=== PATIENT | male | born 1950 | race Caucasian/White ===

== ENCOUNTER 2017-04-24 14:21 | Emergency (ER) | payer MEDICARE ==
[2017-04-24 14:57] VITALS: BMI 39.5
[2017-04-24 15:06] VITALS: RESP 18
[2017-04-24] MEDS ORDERED: Sodium Chloride 0.9% 1,000 ML IV ONE (15:07)
--- NOTE | 2017-04-24 15:27 | C.PDOC ---
History Of Present Illness Patient is a 66 y/o male presents to the emergency department for evaluation of lower abdominal pain radiating down to his testicles. Pt states he has difficulty passing urine. Otherwise, denies any n/v/d, or fever. History translated by RN. Time Seen by Provider: 04/24/17 14:47 Chief Complaint (Nursing): Male Genitourinary History Per: Patient History/Exam Limitations: no limitations Onset/Duration Of Symptoms: Days Current Symptoms Are (Timing): Still Present Quality Of Discomfort: "Pain" Associated Symptoms: Urinary Symptoms. denies: Fever, Chills, Nausea, Vomiting , Diarrhea, Loss Of Appetite, Back Pain, Chest Pain, Constipation Alleviating Factors: None Recent travel outside of the [place]: No Additional History Per: Patient Past Medical History Reviewed: Historical Data, Nursing Documentation, Vital Signs Vital Signs: Last Vital Signs Temp 98.5 F 04/24/17 18:18 Pulse 81 04/24/17 18:18 Resp 18 04/24/17 18:18 BP 134/90 04/24/17 18:18 Pulse Ox 95 04/24/17 18:44 - Medical History PMH: Atrial Fibrillation, Diabetes, HTN, Hypercholesterolemia, Hypothyroidism Denies: Chronic Kidney Disease Surgical History: Cholecystectomy Family History: States: Unknown Family Hx - Social History Hx Alcohol Use: No Hx Substance Use: No - Immunization History Hx Tetanus Toxoid Vaccination: No Hx Influenza Vaccination: No Hx Pneumococcal Vaccination: No Review Of Systems Except As Marked, All Systems Reviewed And Found Negative. Constitutional: Negative for: Fever, Chills Gastrointestinal: Positive for: Abdominal Pain. Negative for: Nausea, Vomiting , Diarrhea Genitourinary: Negative for: Dysuria, Frequency, Hematuria, Penile Discharge, Rash, Penile Pain Musculoskeletal: Negative for: Back Pain Skin: Negative for: Rash Physical Exam - Physical Exam Appears: Non-toxic, No Acute Distress Skin: Normal Color, Warm, Dry Head: Atraumatic, Normacephalic Eye(s): bilateral: Normal Inspection Neck: Supple Chest: Symmetrical Cardiovascular: Rhythm Regular, No Murmur Respiratory: Normal Breath Sounds, No Accessory Muscle Use, No Rales, No Rhonchi , No Wheezing Gastrointestinal/Abdominal: Soft, No Tenderness, No Guarding, No Rebound, Other (obese abdomen) Male Genital: No Testicular Tenderness, No Testicular Swelling, No Inguinal Tenderness, No Inguinal Swelling, No Scrotal Swelling Extremity: Bilateral: Atraumatic, Normal ROM Neurological/Psych: Oriented x3, Normal Speech, Normal Cognition ED Course And Treatment - Laboratory Results Result Diagrams: 04/24/17 16:07 04/24/17 16:07 Lab Interpretation: No Acute Changes ECG: Interpreted By Me ECG Rhythm: Atrial Fibrillation ECG Interpretation: No Acute Changes Rate From EC O2 Sat by Pulse Oximetry: 95 Pulse Ox Interpretation: Normal - CT Scan/US No standard instances Other Rad Studies (CT/US): Read By Radiologist, Radiology Report Reviewed CT/US Interpretation: FINDINGS: There is limited evaluation of the solid organs without the administration of IV contrast. LOWER THORAX: No focal consolidation. No pleural effusion. No pneumothorax. Partially imaged cardiomegaly. Small hiatal hernia. LIVER: Unremarkable unenhanced appearance. GALLBLADDER AND BILE DUCTS: Cholecystectomy. PANCREAS: Fatty atrophy of the pancreas. SPLEEN: Unremarkable unenhanced appearance. ADRENALS : Unremarkable. KIDNEYS AND URETERS: No hydronephrosis or obstructing renal calculus. 2.2 cm exophytic right upper pole renal lesion measures approximately 16 HU, indeterminate. Right upper pole 2.4 cm right upper pole renal lesion measures approximately 9 HU, compatible with a cyst. BLADDER: Decompressed urinary bladder precludes adequate evaluation. REPRODUCTIVE: The prostate gland measures approximately 4.5 x 4.5 cm. APPENDIX: The appendix appears within normal limits of caliber. No secondary signs of acute appendicitis. BOWEL: The stomach is nondistended. Lack of oral contrast limits evaluation for bowel pathology. The bowel loops appear within normal limits of caliber without evidence of intestinal obstruction. PERITONEUM: No significant free fluid. No definite free air. LYMPH NODES: No bulky lymphadenopathy identified. VASCULATURE: Atherosclerotic calcifications of the aorta. No aortic aneurysm. BONES: Osseous demineralization. Degenerative changes. Vacuum disc phenomenon at T12-L1, L1-L2, and L2-L3. OTHER FINDINGS: Fat containing umbilical hernia. IMPRESSION: 2.2 cm exophytic right upper pole renal lesion measures approximately 16 HU, indeterminate. Right upper pole 2.4 cm right upper pole renal lesion measures approximately 9 HU, compatible with a cyst. Cholecystectomy. Enlarged prostate gland. Recommend correlation with PSA. Fat containing umbilical hernia. Additional findings as above. Progress Note: Urinalysis, blood work, EKG, Abd & pelvis CT ordered and reviewed. Patient was given IV fluids. Spoke with Dr. Vick who agrees with plan and discharge. Reassessment Condition: Unchanged - Physician Consult Information Physician Contacted: Brodie Vick Outcome Of Conversation: refer to urologist Dr Winchester Disposition - Disposition Referrals: Mynor Cote MD [Staff Provider] - Brodie Vick MD [IM] - Disposition: HOME/ ROUTINE Disposition Time: 18:00 Condition: GOOD Additional Instructions: Return to ED if any increase symptoms Instructions: Benign Prostatic Hypertrophy (ED) Print Language: GEORGIAN - Clinical Impression Clinical Impression: Abdominal pain, BPH (benign prostatic hyperplasia) - PA / [employer] / Resident Statement MD/DO has reviewed & agrees with the documentation as recorded. - Scribe Statement The provider has reviewed the documentation as recorded by the Reinaldoiblamberto Anderson All medical record entries made by the Reinaldoiblamberto were at my direction and personally dictated by me. I have reviewed the chart and agree that the record accurately reflects my personal performance of the history, physical exam, medical decision making, and the department course for this patient. I have also personally directed, reviewed, and agree with the discharge instructions and disposition.
[2017-04-24 16:14] LABS: BASO # 0.1 K/uL (0.0-0.2); BASO % 1.1 % (0.0-2.0); EOS # 0.1 K/uL (0.0-0.7); EOS % 1.2 % (0.0-4.0); HEMOGLOBIN 14.6 g/dL (12.0-18.0); LYMPH # 1.1 K/uL (1.0-4.3); LYMPH % 20.2 % (20.0-40.0); MEAN CORPUSCULAR HEMOGLOBIN 30.3 pg (27.0-31.0); MEAN CORPUSCULAR HGB CONC 33.7 g/dL (33.0-37.0); MONO # 0.6 K/uL (0.0-0.8); MONO % 10.1 % (0.0-10.0); NEUT # 3.8 K/uL (1.8-7.0); NEUT % 67.4 % (50.0-75.0); RBC 4.8 Mil/uL (4.40-5.90); RED CELL DISTRIBUTION WIDTH 12.3 % (11.5-14.5); SQUAMOUS EPITHIAL 1 /hpf (0-5); URINE BACTERIA RARE (<OCC); URINE BILIRUBIN NEGATIVE (NEGATIVE); URINE BLOOD NEGATIVE (NEGATIVE); URINE CLARITY Clear (Clear); URINE COLOR Yellow (YELLOW); URINE GLUCOSE (UA) 1+ mg/dL (Normal); URINE LEUKOCYTE ESTERASE NEG Leu/uL (Negative); URINE NITRATE NEGATIVE (NEGATIVE); URINE PROTEIN 3+ mg/dL (NEGATIVE); URINE UROBILINOGEN NORMAL mg/dL (0.2-1.0); WHITE BLOOD COUNT 5.6 K/uL (4.8-10.8)
[2017-04-24 16:19] LABS: INR 2.5; PROTHROMBIN TIME 28.6 SECONDS (9.7-12.2)
[2017-04-24 16:23] LABS: CALCIUM 8.9 mg/dl (8.6-10.4)
--- NOTE | 2017-04-24 17:15 | CT ---
PROCEDURE: CT Abdomen and Pelvis without Oral or IV contrast. HISTORY: Pain COMPARISON: None available. TECHNIQUE: Contiguous axial images of the abdomen and pelvis. No oral or IV contrast administered. Coronal and Sagittal reformats generated. Radiation dose: Total exam DLP = 1170.58 mGy-cm. This CT exam was performed using one or more of the following dose reduction techniques: Automated exposure control, adjustment of the mA and/or kV according to patient size, and/or use of iterative reconstruction technique. FINDINGS: There is limited evaluation of the solid organs without the administration of IV contrast. LOWER THORAX: No focal consolidation. No pleural effusion. No pneumothorax. Partially imaged cardiomegaly. Small hiatal hernia. LIVER: Unremarkable unenhanced appearance. GALLBLADDER AND BILE DUCTS: Cholecystectomy. PANCREAS: Fatty atrophy of the pancreas. SPLEEN: Unremarkable unenhanced appearance. ADRENALS: Unremarkable. KIDNEYS AND URETERS: No hydronephrosis or obstructing renal calculus. 2.2 cm exophytic right upper pole renal lesion measures approximately 16 HU, indeterminate. Right upper pole 2.4 cm right upper pole renal lesion measures approximately 9 HU, compatible with a cyst. BLADDER: Decompressed urinary bladder precludes adequate evaluation. REPRODUCTIVE: The prostate gland measures approximately 4.5 x 4.5 cm. APPENDIX: The appendix appears within normal limits of caliber. No secondary signs of acute appendicitis. BOWEL: The stomach is nondistended. Lack of oral contrast limits evaluation for bowel pathology. The bowel loops appear within normal limits of caliber without evidence of intestinal obstruction. PERITONEUM: No significant free fluid. No definite free air. LYMPH NODES: No bulky lymphadenopathy identified. VASCULATURE: Atherosclerotic calcifications of the aorta. No aortic aneurysm. BONES: Osseous demineralization. Degenerative changes. Vacuum disc phenomenon at T12-L1, L1-L2, and L2-L3. OTHER FINDINGS: Fat containing umbilical hernia. IMPRESSION: 2.2 cm exophytic right upper pole renal lesion measures approximately 16 HU, indeterminate. Right upper pole 2.4 cm right upper pole renal lesion measures approximately 9 HU, compatible with a cyst. Cholecystectomy. Enlarged prostate gland. Recommend correlation with PSA. Fat containing umbilical hernia. Additional findings as above.
[2017-04-24 18:19] VITALS: BP 134/90; PULSE 81; TEMP 98.5
[2017-04-24 18:45] VITALS: O2SAT 95
--- NOTE | 2017-04-25 14:40 | CARD ---
APPROVED REPORT EKG Measurement Heart [id number] <Conclusion> Atrial fibrillation with premature ventricular or aberrantly conducted complexes Abnormal ECG
== END 2017-04-24 18:19 | disposition home or self-care (01) ==
LOC: C.ER 14:21
DX: N40.1 Benign prostatic hyperplasia with lower urinary tract symptoms (principal)
CPT/HCPCS: 74176; 80053; 81001; 83690; 85025; 85610; 93005; 96360; 99285; J7040

== ENCOUNTER 2018-05-12 13:06 | Inpatient (IN) | payer MEDICARE ==
[2018-05-12 13:06] VITALS: BMI 39.5
[2018-05-12 14:10] LABS: BASO # 0.1 K/uL (0.0-0.2); BASO % 0.6 % (0.0-2.0); EOS % 0.5 % (0.0-4.0); HEMOGLOBIN 14.2 g/dL (12.0-18.0); LYMPH # 0.9 K/uL (1.0-4.3); LYMPH % 10.9 % (20.0-40.0); MEAN CELL VOLUME 88.1 fL (80.0-94.0); MEAN CORPUSCULAR HEMOGLOBIN 30.7 pg (27.0-31.0); MEAN CORPUSCULAR HGB CONC 34.8 g/dL (33.0-37.0); MEAN PLATELET VOLUME 10.7 fL (7.2-11.7); MONO # 0.9 K/uL (0.0-0.8); NEUT # 6.6 K/uL (1.8-7.0); RBC 4.63 Mil/uL (4.40-5.90); RED CELL DISTRIBUTION WIDTH 12.5 % (11.5-14.5); WHITE BLOOD COUNT 8.6 K/uL (4.8-10.8)
[2018-05-12 14:19] LABS: INR 2.5
[2018-05-12 14:31] VITALS: RESP 20
[2018-05-12 14:34] LABS: TROPONIN I 0.028 ng/mL (0.00-0.120)
[2018-05-12 14:35] LABS: ALBUMIN 4.4 g/dL (3.5-5.0); CALCIUM 9.4 mg/dl (8.6-10.4); URIC ACID 15.9 mg/dL (3.5-8.5)
[2018-05-12] MEDS ORDERED: Sodium Chloride 0.9% 1,000 ML IV ONE (14:55)
[2018-05-12] MEDS ORDERED: Potassium Chloride 10 mEq ER Tab PO STA (15:00)
--- NOTE | 2018-05-12 15:01 | C.PDOC ---
History Of Present Illness 67 y/o male presents to the ED complaining of pain in the dorsum of right foot for the last 3 days. He denies having had similar symptoms in the past. Patient has tried taking anything for pain relief at home. Otherwise he denies any numbness, tingling, or weakness. Time Seen by Provider: 05/12/18 13:24 Chief Complaint (Nursing): Upper Extremity Problem/Injury History Per: Patient History/Exam Limitations: no limitations Onset/Duration Of Symptoms: Days Current Symptoms Are (Timing): Still Present Past Medical History Reviewed: Historical Data, Nursing Documentation, Vital Signs Vital Signs: Last Vital Signs Temp 99.7 F H 05/12/18 13:17 Pulse 87 05/12/18 15:33 Resp 20 05/12/18 15:33 BP 111/60 05/12/18 15:33 Pulse Ox 100 05/12/18 15:33 - Medical History PMH: Atrial Fibrillation, Diabetes, HTN, Hypercholesterolemia, Hypothyroidism Denies: Chronic Kidney Disease Surgical History: Cholecystectomy Family History: States: Unknown Family Hx - Social History Hx Alcohol Use: No Hx Substance Use: No - Immunization History Hx Tetanus Toxoid Vaccination: No Hx Influenza Vaccination: No Hx Pneumococcal Vaccination: No Review Of Systems Except As Marked, All Systems Reviewed And Found Negative. Constitutional: Negative for: Fever Musculoskeletal: Positive for: Foot Pain Skin: Negative for: Rash, Lesions Neurological: Negative for: Weakness, Numbness, Incoordination Physical Exam - Physical Exam Appears: Non-toxic, No Acute Distress, Other (Obese male) Skin: Normal Color, Warm, No Rash Head: Atraumatic, Normacephalic Eye(s): bilateral: Normal Inspection Oral Mucosa: Moist Neck: Normal ROM, Supple Chest: Symmetrical Cardiovascular: Rhythm Regular, No Murmur Respiratory: Normal Breath Sounds, No Rales, No Rhonchi, No Wheezing Extremity: Normal ROM, Tenderness (to the dorsum of right foot), No Swelling, Other (No surrounding erythema or leg edema) Pulses: Left Dorsalis Pedis: Normal, Right Dorsalis Pedis: Normal Neurological/Psych: Oriented x3, Normal Speech, Normal Cranial Nerves ED Course And Treatment - Laboratory Results Result Diagrams: 05/12/18 14:00 05/12/18 14:00 Lab Interpretation: Abnormal (acute renal insuff c/w 04/22 BUN/Creat 106/3.4 H, + hypokalemia) ECG: Interpreted By Me ECG Rhythm: Atrial Fibrillation ECG Interpretation: Abnormal Rate From EC O2 Sat by Pulse Oximetry: 95 (RA) Pulse Ox Interpretation: Normal - Radiology CXR: Interpreted by Me CXR Interpretation: Yes: Heart Size - Other Rad R foot X-Ray: Interpreted by Me (no fx/disloc ) Reevaluation Time: 14:59 Reassessment Condition: Improved - Physician Consult Information Outcome Of Conversation: 1500: d/w Dr. Vick- alfa to admit Medical Decision Making Medical Decision Making: R dorsal foot pain ? gouty Colchicine started Toradol for pain Consider indomethacin, but with acute renal insuff may consider steroids and not NSAIDS for pain . 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 I have reviewed the chart and agree that the record accurately reflects my personal performance of the history, physical exam, medical decision making, and the department course for this patient. I have also personally directed, reviewed, and agree with the discharge instructions and disposition.
[2018-05-12] MEDS ORDERED: Potassium Chloride 10 mEq ER Tab PO ONE (15:09)
--- NOTE | 2018-05-12 15:31 | RAD ---
Chest x-ray single frontal view History: Chest pain. Comparison: 04/25/2016 Findings: Biapical pleural thickening with upper lobe granulomatous changes. Mild venous congestion. Right hilar prominence. Patchy increased markings at the left lung base with small left pleural effusion. Cardiomegaly. Enlarged ectatic aorta. Degenerative changes in the spine and shoulders. Impression: Biapical pleural thickening with upper lobe granulomatous changes. Mild venous congestion. Right hilar prominence. Patchy increased markings at the left lung base with small left pleural effusion. Cardiomegaly. Enlarged ectatic aorta.
[2018-05-12] MEDS: Sodium Chloride 0.9% 1,000 ML IV SCH (16:12)
--- NOTE | 2018-05-12 16:32 | CP.PCM.HP ---
History of Present Illness - History of Present Illness History of Present Illness: Patient is admitted for progressive renal failure and decreasing urine output and right ankle pain. Patient has a history of hypertension and atrial fibrillation history of diastolic heart failure type 2 diabetes recently patients creatinine had gone up to 1.5-1.6. [place] and came back after 1 month and a repeat blood test showed creatinine had gone up to 3.4. Patient was also complaining of urinary symptoms and outpatient urine culture were positive for E. coli more than 100,000. Patient was given Augmentin which was sensitive to E. coli. Patient took some antibiotics and started complaining of more decreasing urine output and swelling and pain on the right ankle patient stated that the pain in the right ankle has been present for the last few months. In the emergency room patients creatinine was 3.5 and BUN was 101 with a potassium of 2.9. Patient is admitted now for further evaluation. Present on Admission - Present on Admission Any Indicators Present on Admission: No Past Patient History - Past Medical History & Family History Past Medical History?: Yes - Past Social History Smoking Status: Former Smoker - CARDIAC Hx Atrial Fibrillation: Yes Hx Hypercholesterolemia: Yes Hx Hypertension: Yes - PULMONARY Hx Respiratory Disorders: No - NEUROLOGICAL Hx Neurological Disorder: Yes Hx Dizziness: Yes Hx Syncope: Yes - HEENT Hx HEENT Problems: No - RENAL Hx Chronic Kidney Disease: No - ENDOCRINE/METABOLIC Hx Hypothyroidism: Yes - HEMATOLOGICAL/ONCOLOGICAL Hx Blood Disorders: No Hx Blood Transfusions: No - INTEGUMENTARY Hx Dermatological Problems: No - MUSCULOSKELETAL/RHEUMATOLOGICAL Hx Musculoskeletal Disorders: Yes Hx Falls: Yes - GASTROINTESTINAL Hx Gastrointestinal Disorders: No - GENITOURINARY/GYNECOLOGICAL Hx Genitourinary Disorders: No - PSYCHIATRIC Hx Substance Use: No - SURGICAL HISTORY Hx Cholecystectomy: Yes - ANESTHESIA Hx Anesthesia: Yes Hx Anesthesia Reactions: No Meds Allergies/Adverse Reactions: Allergies Allergy/AdvReac Type Severity Reaction Status Date / Time No Known Allergies Allergy Verified 05/12/18 13:09 Results - Vital Signs Recent Vital Signs: Last Vital Signs Temp 99.7 F H 05/12/18 13:17 Pulse 87 05/12/18 15:33 Resp 20 05/12/18 15:33 BP 111/60 05/12/18 15:33 Pulse Ox 100 05/12/18 15:33 - Labs Result Diagrams: 05/15/18 07:13 05/15/18 07:13 Labs: Laboratory Results - last 24 hr 05/12/18 05/12/18 05/12/18 14:00 14:00 14:00 WBC 8.6 D RBC 4.63 Hgb 14.2 Hct 40.8 MCV 88.1 MCH 30.7 MCHC 34.8 RDW 12.5 Plt Count 184 MPV 10.7 Neut % (Auto) 77.0 H Lymph % (Auto) 10.9 L [place] % (Auto) 11.0 H Eos % (Auto) 0.5 Baso % (Auto) 0.6 Neut # (Auto) 6.6 Lymph # (Auto) 0.9 L [place] # (Auto) 0.9 H Eos # (Auto) 0.0 Baso # (Auto) 0.1 PT 27.0 H INR 2.5 APTT 41 H Sodium 139 Potassium 2.9 L Chloride 91 L Carbon Dioxide 32 H Anion Gap 19 BUN 106 H* D Creatinine 3.4 H Est GFR ( Amer) 22 Est GFR (Non-Af Amer) 18 Random Glucose 149 H Uric Acid 15.9 H Calcium 9.4 Total Bilirubin 1.1 AST 32 ALT 31 Alkaline Phosphatase 73 Troponin I 0.0280 NT-Pro-B Natriuret Pep 1250 H Total Protein 8.9 H Albumin 4.4 Globulin 4.5 H Albumin/Globulin Ratio 1.0
--- NOTE | 2018-05-12 16:54 | RAD ---
Date of service: 05/12/2018 PROCEDURE: Right Foot Radiographs. HISTORY: dorsum R foot, no trauma, ? gout COMPARISON: None. FINDINGS: BONES: No evidence of acute displaced fracture nor dislocation. Small triangular-shaped bony density adjacent to the medial aspect base distal phalanx great toe could represent old incompletely fused fracture deformity. . There is dorsal and plantar surface calcaneal enthesophyte formation. JOINTS: Mild multi articular degenerative osteoarthritis SOFT TISSUES: Calcification of the plantar fascia is present OTHER FINDINGS: None. IMPRESSION: No evidence of acute displaced fracture nor dislocation. Small triangular-shaped bony density adjacent to the medial aspect base distal phalanx great toe could represent old incompletely fused fracture deformity. . There is dorsal and plantar surface calcaneal enthesophyte formation. Mild multi articular degenerative osteoarthritis. . Calcification of the plantar fascia
[2018-05-12] MEDS: (Novolin R) Insulin Human Regular 100 units/ml vial SC SCH (21:11)
[2018-05-12] MEDS: Oxycodone/Acetaminophen 5/325 mg Tab PO PRN (22:07)
[2018-05-12 22:20] LABS: SQUAMOUS EPITHIAL < 1 /hpf (0-5); URINE BACTERIA RARE (<OCC); URINE BILIRUBIN NEGATIVE (NEGATIVE); URINE BLOOD NEGATIVE (NEGATIVE); URINE CLARITY Clear (Clear); URINE COLOR Yellow (YELLOW); URINE GLUCOSE (UA) NORMAL (Normal); URINE LEUKOCYTE ESTERASE NEG Leu/uL (Negative); URINE PROTEIN 2+ mg/dL (NEGATIVE); URINE UROBILINOGEN NORMAL mg/dL (0.2-1.0)
[2018-05-13] MEDS: Sodium Chloride 0.9% 1,000 ML IV SCH ×4 (02:20→21:08)
[2018-05-13] MEDS: Levothyroxine 200 MCG TAB PO SCH (07:00)
[2018-05-13 07:22] LABS: BASO # 0.1 K/uL (0.0-0.2); BASO % 0.9 % (0.0-2.0); EOS # 0.2 K/uL (0.0-0.7); EOS % 2.9 % (0.0-4.0); HEMOGLOBIN 13.8 g/dL (12.0-18.0); LYMPH # 1.5 K/uL (1.0-4.3); LYMPH % 22.9 % (20.0-40.0); MEAN CORPUSCULAR HEMOGLOBIN 31.2 pg (27.0-31.0); MEAN CORPUSCULAR HGB CONC 34.6 g/dL (33.0-37.0); MEAN PLATELET VOLUME 10.8 fL (7.2-11.7); MONO # 0.7 K/uL (0.0-0.8); MONO % 10.3 % (0.0-10.0); NEUT # 4.2 K/uL (1.8-7.0); RBC 4.42 Mil/uL (4.40-5.90); RED CELL DISTRIBUTION WIDTH 12.6 % (11.5-14.5); WHITE BLOOD COUNT 6.6 K/uL (4.8-10.8)
[2018-05-13] MEDS: (Novolin R) Insulin Human Regular 100 units/ml vial SC SCH ×4 (07:43→21:07)
[2018-05-13 08:16] LABS: ALB/GLOB RATIO 1.1 (1.0-2.1); ALBUMIN 4.2 g/dL (3.5-5.0); CALCIUM 8.8 mg/dl (8.6-10.4)
--- NOTE | 2018-05-13 13:59 | US ---
Date of service: 05/13/2018 PROCEDURE: Ultrasound of the Kidneys HISTORY: [facility] COMPARISON: None available. TECHNIQUE: Sonogram of the kidneys. FINDINGS: RIGHT KIDNEY: Measures: 12.9 x 5.8 x 6.1 cm. The renal parenchyma is echogenic with poor corticomedullary differentiation indicative of intrinsic medical renal disease. No solid mass identified, urolithiasis or hydronephrosis. A simple exophytic cyst is is seen related to the upper midpole measuring 2.8 x 2.4 by 2.7 cm with an intrarenal cyst at the upper midpole measuring 2.7 x 2.4 x 2.9 cm. Both appear simple. LEFT KIDNEY: Measures: 10.5 x 5.5 x 5.2 cm. Echogenic renal parenchyma is appreciate with poor corticomedullary differentiation compatible with intrinsic medical renal disease. No obstructive uropathy, cyst or solid mass or perinephric fluid collection. OTHER FINDINGS: Urinary bladder is limited volume at 72.5 cc which is a postvoid residual from an indeterminate volume. The patient voided immediately prior to the examination unfortunately. IMPRESSION: Echogenic parenchyma is appreciate with very poor corticomedullary differentiation suggesting intrinsic medical disease. No obstructive uropathy or solid renal parenchymal mass. Two simple cysts identified in the upper midpole right kidney as discussed above.
[2018-05-13] MEDS ORDERED: Potassium Chloride 20 mEq ER Tab PO ONE (14:15)
--- NOTE | 2018-05-13 14:26 | CP.PCM.HP ---
History of Present Illness - History of Present Illness History of Present Illness: COMPREHENSIVE HISTORY & PHYSICAL EXAM HPI Patient is admitted for progressive renal failure and decreasing urine output and right ankle pain. Patient has a history of hypertension and atrial fibrillation history of diastolic heart failure type 2 diabetes recently patients creatinine had gone up to 1.5-1.6. Recently patient went [place] country and came back after 1 month and a repeat blood test showed creatinine had gone up to 3.4. Patient was also complaining of urinary symptoms and outpatient urine culture were positive for E. coli more than 100,000. Patient was given Augmentin which was sensitive to E. coli. Patient took some antibiotics and started complaining of more decreasing urine output and swelling and pain on the right ankle patient stated that the pain in the right ankle has been present for the last few months. In the emergency room patients creatinine was 3.5 and BUN was 101 with a potassium of 2.9. Patient is admitted now for further evaluation. PAST HIST. PERSONAL HIST: Smoking. N Alcohol. N Allergy N Travel_- . FAMILY HIST : ROS : Constitutional: Negative for weight change, chills, night sweats, fatigue and usage of assist device. Eyes: Negative for redness, swelling, itching, discharge, vision changes, blurry vision, double vision, glaucoma, cataracts, Ears: Negative for hearing loss, ringing, , tinnitus, vertigo Nose: Negative for rhinorrhea, stuffiness, sniffing, itching, postnasal drip, discoloration, nasal congestion and epistaxis. Throat: Negative for throat clearing, sore throat, hoarseness, difficulty swallowing and difficulty speaking. Respiratory: Negative for cough, , sputum production, chest tightness, wheezing, pleuritic chest pain ,daytime somnolence, chronic cough, hemoptysis, snoring at night, Cardiovascular: Negative for chest pain, palpitations, orthopnea, PND, Edema of legs, leg cramps, angina, claudication, , irregular heartbeat, Neurology: Negative for irritability, muscle weakness, numbness and tingling, seizures, tremors, migraines, slurred speech, syncope, memory loss, mood changes , recurrent headaches Gastrointestinal: Negative for difficulty swallowing, diarrhea, constipation, black stools, rectal bleeding, nausea, flatulence, reflux, poor appetite, changes in bowel habits, abdominal pain Genitourinary patient has a frequent urination with decreasing urine output no definite dysuria currently or hematuria. Psychiatric: Negative for depression, anxiety/panic, suicidal tendencies, Musculoskeletal: Negative for swollen joints, back pain, , neck pain, morning stiffness of joints, . Skin: Negative for rash, ulcers, itching, dry skin and pigmented lesions. P/E: Constitutional: Appears stated age and in no apparent distress. Head: Normocephalic. Ears: External ear canals patent without inflammation. Tympanic membranes intact with normal light reflex and landmark. Eyes: Pupils are central, bilaterally equal, symmetrical and reacts to light with normal movements and no icterus or pallor. Nose: External nares are patent. Mucosa is pink Mouth-Throat: Good general appearance and condition. No post-pharyngeal/oropharyngeal erythema and tonsillar hypertrophy. Good dental hygiene. Neck-Lymphatic: Neck is supple with normal ROM, no thyromegaly, lymph nodes or masses. JVD is normal with no carotid bruit. Lungs: Clear to percussion and auscultation with bilateral normal air entry. Cardiovascular: S1 and S2 are normal with no murmurs, gallops and rub. GI Exam: No hepatomegaly. Abdomen is soft and non-tender. No Organomegaly , masses or hernias are evident and bowel sounds are normal and active. Neurology: Higher function and all cranial nerves intact, with no gross motor or sensory deficit. Superficial and deep reflexes are normal with downwards planters. No cerebellar deficit with normal gait. Musculoskeletal: No tender spots with normal curvature of the spine with no swelling or restricted ROM of the small and large joints. Extremities: Homans sign absent. Intact pulses with no pitting edema, calf tenderness or skin color changes. There is tenderness in the right ankle range of motion is restricted because of pain Skin: No rash, eruptions or abnormal skin pigmentation LAB/RADIOLOGY: ASSESMENT : Acute on chronic renal failure with hypokalemia. Hypertension atrial fibrillation. Type 2 diabetes PLAN: See orders Present on Admission - Present on Admission Any Indicators Present on Admission: No Past Patient History - Past Medical History & Family History Past Medical History?: Yes - Past Social History Smoking Status: Former Smoker - CARDIAC Hx Atrial Fibrillation: Yes Hx Hypercholesterolemia: Yes Hx Hypertension: Yes - PULMONARY Hx Respiratory Disorders: No - NEUROLOGICAL Hx Neurological Disorder: Yes Hx Dizziness: Yes Hx Syncope: Yes - HEENT Hx HEENT Problems: No - RENAL Hx Chronic Kidney Disease: No - ENDOCRINE/METABOLIC Hx Hypothyroidism: Yes - HEMATOLOGICAL/ONCOLOGICAL Hx Blood Disorders: No Hx Blood Transfusions: No - INTEGUMENTARY Hx Dermatological Problems: No - MUSCULOSKELETAL/RHEUMATOLOGICAL Hx Falls: Yes - GASTROINTESTINAL Hx Gastrointestinal Disorders: No - GENITOURINARY/GYNECOLOGICAL Hx Genitourinary Disorders: No - PSYCHIATRIC Hx Substance Use: No - SURGICAL HISTORY Hx Cholecystectomy: Yes Hx Herniorrhaphy: Yes Other/Comment: brain tumor removal in [place] - ANESTHESIA Hx Anesthesia: Yes Hx Anesthesia Reactions: No Meds Allergies/Adverse Reactions: Allergies Allergy/AdvReac Type Severity Reaction Status Date / Time No Known Allergies Allergy Verified 05/12/18 13:09 Results - Vital Signs Recent Vital Signs: Last Vital Signs Temp 98.1 F 05/13/18 07:00 Pulse 91 H 05/13/18 07:15 Resp 20 05/13/18 07:00 BP 113/69 05/13/18 07:00 Pulse Ox 99 05/13/18 07:00 - Labs Result Diagrams: 05/13/18 07:02 05/13/18 07:02 Labs: Laboratory Results - last 24 hr 05/12/18 05/12/18 05/12/18 13:11 14:00 14:00 WBC RBC Hgb Hct MCV MCH MCHC RDW Plt Count MPV Neut % (Auto) Lymph % (Auto) [place] % (Auto) Eos % (Auto) Baso % (Auto) Neut # (Auto) Lymph # (Auto) [place] # (Auto) Eos # (Auto) Baso # (Auto) PT 27.0 H INR 2.5 APTT 41 H Sodium 139 Potassium 2.9 L Chloride 91 L Carbon Dioxide 32 H Anion Gap 19 BUN 106 H* D Creatinine 3.4 H Est GFR ( Amer) 22 Est GFR (Non-Af Amer) 18 POC Glucose (mg/dL) 155 H Random Glucose 149 H Uric Acid 15.9 H Calcium 9.4 Total Bilirubin 1.1 AST 32 ALT 31 Alkaline Phosphatase 73 Troponin I 0.0280 NT-Pro-B Natriuret Pep 1250 H Total Protein 8.9 H Albumin 4.4 Globulin 4.5 H Albumin/Globulin Ratio 1.0 Urine Color Urine Clarity Urine pH Ur Specific [place] Urine Protein Urine Glucose (UA) Urine Ketones Urine Blood Urine Nitrate Urine Bilirubin Urine Urobilinogen Ur Leukocyte Esterase Urine WBC (Auto) Urine RBC (Auto) Ur Squamous Epith Cells Urine Bacteria 05/12/18 05/12/18 05/12/18 16:45 20:39 22:09 WBC RBC Hgb Hct MCV MCH MCHC RDW Plt Count MPV Neut % (Auto) Lymph % (Auto) [place] % (Auto) Eos % (Auto) Baso % (Auto) Neut # (Auto) Lymph # (Auto) [place] # (Auto) Eos # (Auto) Baso # (Auto) PT INR APTT Sodium Potassium Chloride Carbon Dioxide Anion Gap BUN Creatinine Est GFR ( Amer) Est GFR (Non-Af Amer) POC Glucose (mg/dL) 144 H 144 H Random Glucose Uric Acid Calcium Total Bilirubin AST ALT Alkaline Phosphatase Troponin I NT-Pro-B Natriuret Pep Total Protein Albumin Globulin Albumin/Globulin Ratio Urine Color Yellow Urine Clarity Clear Urine pH 5.0 Ur Specific [place] 1.014 Urine Protein 2+ H Urine Glucose (UA) Normal Urine Ketones Negative Urine Blood Negative Urine Nitrate Negative Urine Bilirubin Negative Urine Urobilinogen Normal Ur Leukocyte Esterase Neg Urine WBC (Auto) 2 Urine RBC (Auto) < 1 Ur Squamous Epith Cells < 1 Urine Bacteria Rare 05/13/18 05/13/18 05/13/18 06:42 07:02 07:02 WBC 6.6 RBC 4.42 Hgb 13.8 Hct 39.8 MCV 90.0 MCH 31.2 H MCHC 34.6 RDW 12.6 Plt Count 172 MPV 10.8 Neut % (Auto) 63.0 Lymph % (Auto) 22.9 [place] % (Auto) 10.3 H Eos % (Auto) 2.9 Baso % (Auto) 0.9 Neut # (Auto) 4.2 Lymph # (Auto) 1.5 [place] # (Auto) 0.7 Eos # (Auto) 0.2 Baso # (Auto) 0.1 PT INR APTT Sodium 142 Potassium 3.4 L Chloride 95 L Carbon Dioxide 31 H Anion Gap 19 BUN 101 H* Creatinine 3.1 H Est GFR ( Amer) 24 Est GFR (Non-Af Amer) 20 POC Glucose (mg/dL) 129 H Random Glucose 134 H Uric Acid Calcium 8.8 Total Bilirubin 0.8 AST 26 ALT 27 Alkaline Phosphatase 66 Troponin I NT-Pro-B Natriuret Pep Total Protein 7.9 Albumin 4.2 Globulin 3.7 Albumin/Globulin Ratio 1.1 Urine Color Urine Clarity Urine pH Ur Specific [place] Urine Protein Urine Glucose (UA) Urine Ketones Urine Blood Urine Nitrate Urine Bilirubin Urine Urobilinogen Ur Leukocyte Esterase Urine WBC (Auto) Urine RBC (Auto) Ur Squamous Epith Cells Urine Bacteria 05/13/18 11:18 WBC RBC Hgb Hct MCV MCH MCHC RDW Plt Count MPV Neut % (Auto) Lymph % (Auto) [place] % (Auto) Eos % (Auto) Baso % (Auto) Neut # (Auto) Lymph # (Auto) [place] # (Auto) Eos # (Auto) Baso # (Auto) PT INR APTT Sodium Potassium Chloride Carbon Dioxide Anion Gap BUN Creatinine Est GFR ( Amer) Est GFR (Non-Af Amer) POC Glucose (mg/dL) 221 H Random Glucose Uric Acid Calcium Total Bilirubin AST ALT Alkaline Phosphatase Troponin I NT-Pro-B Natriuret Pep Total Protein Albumin Globulin Albumin/Globulin Ratio Urine Color Urine Clarity Urine pH Ur Specific [place] Urine Protein Urine Glucose (UA) Urine Ketones Urine Blood Urine Nitrate Urine Bilirubin Urine Urobilinogen Ur Leukocyte Esterase Urine WBC (Auto) Urine RBC (Auto) Ur Squamous Epith Cells Urine Bacteria
--- NOTE | 2018-05-13 14:29 | CP.PCM.PN ---
Subjective - Date & Time of Evaluation Date of Evaluation: 05/13/18 Time of Evaluation: 14:27 - Subjective Subjective: CHIEF COMPLAINTS TODAY : Patient is complaining of lower abdominal pain and oliguria. The pain in the right ankle is slightly less ROS. HEENT : N. Resp : No cough, wheezing ,pleuritic CP ,or hemoptysis Cardio : No anginal CP, PND, orthopnea, palpitation GI : No abd.pain, n/v ,diarrhea or GI bleeding . [employer] : No headache, vertigo, focal deficit. Musculoskel : No joint swelling , right ankle pain Derm : No rash Psych : Normal affect. Ext : No swelling ,calf pain PE. Pt. is alert awake in no distress. V.S As noted in the chart Head ,ear nose,throat and eyes : Normal. Neck : Supple with normal carotids. Lungs: Clear air entry. Heart : S1 & S2 normal with S4. No murmur. Abd : Soft non tender with normal bowel sounds. Neuro : Moves all ext. with no localized deficit. Ext : No edema with intact pulses.Non tender calves . Tenderness in the right ankle Derm : No rashes or decubitus ulcer. LABS/RADIOLOGY: BUN is 101 creatinine is 3.0 and potassium is 3.4 ASSESSMENT/PLAN : Awaiting nephrology evaluation continue present medication Objective - Vital Signs/Intake and Output Vital Signs (last 24 hours): Temp Pulse Resp BP Pulse Ox 98.1 F 91 H 20 113/69 99 05/13/18 07:00 05/13/18 07:15 05/13/18 07:00 05/13/18 07:00 05/13/18 07:00 Intake and Output: 05/13/18 05/13/18 11:59 23:59 Intake Total 1040 Output Total 400 Balance 640 - Medications Medications: Current Medications Sodium Chloride (Sodium Chloride 0.9%) 1,000 mls @ 100 mls/hr IV .Q10H [facility] Last Admin: 05/13/18 14:08 Dose: 100 mls/hr Insulin Human Regular (Novolin R) 0 unit SC ACHS [facility] PRN Reason: Protocol Last Admin: 05/13/18 12:20 Dose: 3 units Levothyroxine Sodium (Synthroid) 200 mcg PO DAILY@0630 [facility] Last Admin: 05/13/18 07:00 Dose: 200 mcg Oxycodone/Acetaminophen (Percocet 5/325 Mg Tab) 1 tab PO Q6H PRN PRN Reason: Pain, severe (8-10) Stop: 05/15/18 21:16 Last Admin: 05/12/18 22:07 Dose: 1 tab Pneumococcal Polyvalent Vaccine (Pneumovax 23 Vaccine) 0.5 ml IM .ONCE ONE Stop: 05/14/18 10:01 Warfarin Sodium (Coumadin) 6 mg PO DAILY@1800 ONE Stop: 05/13/18 18:01 - Labs Labs: 05/13/18 07:02 05/13/18 07:02 PT 27.0 SECONDS (9.7-12.2) H 05/12/18 14:00 INR 2.5 05/12/18 14:00 APTT 41 SECONDS (21-34) H 05/12/18 14:00
[2018-05-13 14:37] LABS: PROTHROMBIN TIME 32.9 SECONDS (9.7-12.2)
[2018-05-13 15:41] LABS: CREATININE, RANDOM URINE 82.4 mg/dL
--- NOTE | 2018-05-13 15:48 | CP.PCM.CON ---
History of Present Illness - History of Present Illness History of Present Illness: Nephrology Consultation Note: Assessment: Stable Acute Kidney Injury (N17.9) ? etiology, possibly due to pre--renal state. other differential include AIN due to recent Abx Hypokalemia Chronic Kidney Disease (N18.3) Stage3 with ? mg proteinuria (R80.9) ? due to Obesity, A fib on coumadin Hyperuricemia Hypothyroidism Plan No acute need for renal replacement therapy at this time. BP controlled without meds. Maintain hemodynamics stable. Avoid hypotension. Patient not on ACEI/ARB due to recent KELSEA Monitor Input/Output, daily weights and renal function with basic metabolic panel continue with IVF as NS d/c metformin due to serum Cr elevation. consider alternative meds to control sugar. check a1c can add uloric 40 mg/day for hyperuricemia. (deferred allopurniol due to interaction with coumadin but uloric is non-formulary) hold lasix supplement KDUR Check urine analysis, spot protein/creatinine, albumin/creatinine ratio, urine for eosinophils. Check CPK, uric acid, renal and bladder sonogram Check for 25-OH vitamin D, iPTH, phosphorus level. Dose meds/antibiotics for reduced GFR. Avoid fleets enema/magnesium based laxatives. Avoid nephrotoxins/NSAIDs/ iodinated contrast (unless needed emergently) Glycemic control Further work up/management as per primary team Thanks for allowing me to participate in care of your patient. Will follow patient with you. Please call if any Qs. had d/w team and son with pt permission Dr Carlos Larios Office: [phone] Chief Complaint; kidney problem Reason for consult: Acute Kidney Injury HPI: Pt is a 67 M with hx of borderline diabetes Mellitus, Hypothyroidism, A fib on coumadin, CKD stage 3 with baseline cr 1.5-2.0 since 2016, chronic edema on lasix presented with complaints of foot pain and also found to have KELSEA hence renal consulted. pt or son not aware about kidney disease in past Denies OTC/herbal meds or NSAIDs No recent iodinated contrast exposure. No obvious episodes of low BP. pt reports decreased appetite for last 1-2 days and was recently treated with an antibiotics for UTI ROS: Cardiovascular: No chest pain. Pulmonary: No shortness of breath Gastrointestinal: denies abdominal pain No nausea. No vomiting. Genitourinary: No pain while urinating. Denies blood in urine. reports protate issues in past All other negative except as mentioned in HPI Physical Examination: General Appearance: Comfortable, in no acute respiratory distress, co-operative . Vitals reviewed and noted as below Head; Atraumatic, normocephalic ENT: no ulcers no thrush. Tongue is midline. Oropharynx: no rash or ulcers. EYES: Pupils are equal, round and reactive to light accommodation. Eye muscles and extraocular movement intact. Sclera is anicteric. Neck; supple no lymphadenopathy, no thyromegaly or bruit Lungs: Normal respiratory rate/effort. Breath sounds bilateral equal and clear Heart: Normal rate. s1s2 normal. No rub or gallop. Extremities: no edema. No varicose veins. chronic hyperpigmented changes in leg skin noted Neurological: Patient is alert, awake and oriented to person, place and time. No focal deficit. Strength bilateral appropriate and equal Skin: Warm and dry. Normal turgor. No rash. Palpitation: Normal elasticity for age Abdomen: Abdomen is soft. Bowel sounds +. There is no abdominal tenderness, no guarding/rigidity no organomegaly Psych: limited insight and normal affect/mood MSK: no joint tenderness or swelling. Digits and nails normal, no deformity : kidney or bladder not palpable Labs/imaging reviewed. Past medical history, past surgical history, family history, social history, allergy reviewed and noted as below Family hx: no hx of CKD. Rest non-contributory renal imaging b/l medical renal disease with increased echogenicity. no hydronephrosis. uric acid 15.9 UA 2+ protein Past Patient History - Past Medical History & Family History Past Medical History?: Yes - Past Social History Smoking Status: Former Smoker - CARDIAC Hx Atrial Fibrillation: Yes Hx Hypercholesterolemia: Yes Hx Hypertension: Yes - PULMONARY Hx Respiratory Disorders: No - NEUROLOGICAL Hx Neurological Disorder: Yes Hx Dizziness: Yes Hx Syncope: Yes - HEENT Hx HEENT Problems: No - RENAL Hx Chronic Kidney Disease: No - ENDOCRINE/METABOLIC Hx Hypothyroidism: Yes - HEMATOLOGICAL/ONCOLOGICAL Hx Blood Disorders: No Hx Blood Transfusions: No - INTEGUMENTARY Hx Dermatological Problems: No - MUSCULOSKELETAL/RHEUMATOLOGICAL Hx Falls: Yes - GASTROINTESTINAL Hx Gastrointestinal Disorders: No - GENITOURINARY/GYNECOLOGICAL Hx Genitourinary Disorders: No - PSYCHIATRIC Hx Substance Use: No - SURGICAL HISTORY Hx Cholecystectomy: Yes Hx Herniorrhaphy: Yes Other/Comment: brain tumor removal in [place] - ANESTHESIA Hx Anesthesia: Yes Hx Anesthesia Reactions: No Meds Allergies/Adverse Reactions: Allergies Allergy/AdvReac Type Severity Reaction Status Date / Time No Known Allergies Allergy Verified 05/12/18 13:09 - Medications Medications: Current Medications Sodium Chloride (Sodium Chloride 0.9%) 1,000 mls @ 100 mls/hr IV .Q10H [facility] Last Admin: 05/13/18 14:08 Dose: 100 mls/hr Insulin Human Regular (Novolin R) 0 unit SC ACHS [facility] PRN Reason: Protocol Last Admin: 05/13/18 12:20 Dose: 3 units Levothyroxine Sodium (Synthroid) 200 mcg PO DAILY@0630 [facility] Last Admin: 05/13/18 07:00 Dose: 200 mcg Oxycodone/Acetaminophen (Percocet 5/325 Mg Tab) 1 tab PO Q6H PRN PRN Reason: Pain, severe (8-10) Stop: 05/15/18 21:16 Last Admin: 05/12/18 22:07 Dose: 1 tab Pneumococcal Polyvalent Vaccine (Pneumovax 23 Vaccine) 0.5 ml IM .ONCE ONE Stop: 05/14/18 10:01 Warfarin Sodium (Coumadin) 6 mg PO DAILY@1800 ONE Stop: 05/13/18 18:01 Results - Vital Signs Recent Vital Signs: Last Vital Signs Temp 98.1 F 05/13/18 07:00 Pulse 91 H 05/13/18 07:15 Resp 20 05/13/18 07:00 BP 113/69 05/13/18 07:00 Pulse Ox 99 05/13/18 07:00 - Labs Result Diagrams: 05/13/18 07:02 05/13/18 07:02 Labs: Laboratory Results - last 24 hr 05/12/18 05/12/18 05/12/18 13:11 16:45 20:39 WBC RBC Hgb Hct MCV MCH MCHC RDW Plt Count MPV Neut % (Auto) Lymph % (Auto) [place] % (Auto) Eos % (Auto) Baso % (Auto) Neut # (Auto) Lymph # (Auto) [place] # (Auto) Eos # (Auto) Baso # (Auto) PT INR Sodium Potassium Chloride Carbon Dioxide Anion Gap BUN Creatinine Est GFR ( Amer) Est GFR (Non-Af Amer) POC Glucose (mg/dL) 155 H 144 H 144 H Random Glucose Calcium Total Bilirubin AST ALT Alkaline Phosphatase Total Protein Albumin Globulin Albumin/Globulin Ratio Urine Color Urine Clarity Urine pH Ur Specific [place] Urine Protein Urine Glucose (UA) Urine Ketones Urine Blood Urine Nitrate Urine Bilirubin Urine Urobilinogen Ur Leukocyte Esterase Urine WBC (Auto) Urine RBC (Auto) Ur Squamous Epith Cells Urine Bacteria 05/12/18 05/13/18 05/13/18 22:09 06:42 07:02 WBC 6.6 RBC 4.42 Hgb 13.8 Hct 39.8 MCV 90.0 MCH 31.2 H MCHC 34.6 RDW 12.6 Plt Count 172 MPV 10.8 Neut % (Auto) 63.0 Lymph % (Auto) 22.9 [place] % (Auto) 10.3 H Eos % (Auto) 2.9 Baso % (Auto) 0.9 Neut # (Auto) 4.2 Lymph # (Auto) 1.5 [place] # (Auto) 0.7 Eos # (Auto) 0.2 Baso # (Auto) 0.1 PT INR Sodium Potassium Chloride Carbon Dioxide Anion Gap BUN Creatinine Est GFR ( Amer) Est GFR (Non-Af Amer) POC Glucose (mg/dL) 129 H Random Glucose Calcium Total Bilirubin AST ALT Alkaline Phosphatase Total Protein Albumin Globulin Albumin/Globulin Ratio Urine Color Yellow Urine Clarity Clear Urine pH 5.0 Ur Specific [place] 1.014 Urine Protein 2+ H Urine Glucose (UA) Normal Urine Ketones Negative Urine Blood Negative Urine Nitrate Negative Urine Bilirubin Negative Urine Urobilinogen Normal Ur Leukocyte Esterase Neg Urine WBC (Auto) 2 Urine RBC (Auto) < 1 Ur Squamous Epith Cells < 1 Urine Bacteria Rare 05/13/18 05/13/18 05/13/18 07:02 11:18 14:14 WBC RBC Hgb Hct MCV MCH MCHC RDW Plt Count MPV Neut % (Auto) Lymph % (Auto) [place] % (Auto) Eos % (Auto) Baso % (Auto) Neut # (Auto) Lymph # (Auto) [place] # (Auto) Eos # (Auto) Baso # (Auto) PT 32.9 H* D INR 3.0 Sodium 142 Potassium 3.4 L Chloride 95 L Carbon Dioxide 31 H Anion Gap 19 BUN 101 H* Creatinine 3.1 H Est GFR ( Amer) 24 Est GFR (Non-Af Amer) 20 POC Glucose (mg/dL) 221 H Random Glucose 134 H Calcium 8.8 Total Bilirubin 0.8 AST 26 ALT 27 Alkaline Phosphatase 66 Total Protein 7.9 Albumin 4.2 Globulin 3.7 Albumin/Globulin Ratio 1.1 Urine Color Urine Clarity Urine pH Ur Specific [place] Urine Protein Urine Glucose (UA) Urine Ketones Urine Blood Urine Nitrate Urine Bilirubin Urine Urobilinogen Ur Leukocyte Esterase Urine WBC (Auto) Urine RBC (Auto) Ur Squamous Epith Cells Urine Bacteria
[2018-05-13 15:54] LABS: SQUAMOUS EPITHIAL 1 /hpf (0-5); URINE BILIRUBIN NEGATIVE (NEGATIVE); URINE BLOOD NEGATIVE (NEGATIVE); URINE CLARITY Clear (Clear); URINE COLOR Yellow (YELLOW); URINE GLUCOSE (UA) NORMAL (Normal); URINE LEUKOCYTE ESTERASE NEG Leu/uL (Negative); URINE PROTEIN 2+ mg/dL (NEGATIVE); URINE UROBILINOGEN NORMAL mg/dL (0.2-1.0)
[2018-05-14] MEDS ORDERED: DiphenhydrAMINE 50 mg/ml Inj IVP ONE (02:14)
[2018-05-14] MEDS: Levothyroxine 200 MCG TAB PO SCH (06:02)
[2018-05-14 08:44] LABS: BASO % 0.9 % (0.0-2.0); EOS # 0.1 K/uL (0.0-0.7); EOS % 3.1 % (0.0-4.0); HEMOGLOBIN 13.1 g/dL (12.0-18.0); LYMPH # 0.9 K/uL (1.0-4.3); LYMPH % 21.8 % (20.0-40.0); MEAN CELL VOLUME 89.6 fL (80.0-94.0); MEAN CORPUSCULAR HEMOGLOBIN 30.4 pg (27.0-31.0); MEAN PLATELET VOLUME 10.7 fL (7.2-11.7); MONO # 0.4 K/uL (0.0-0.8); MONO % 8.9 % (0.0-10.0); NEUT # 2.7 K/uL (1.8-7.0); NEUT % 65.3 % (50.0-75.0); RBC 4.32 Mil/uL (4.40-5.90); RED CELL DISTRIBUTION WIDTH 12.7 % (11.5-14.5); WHITE BLOOD COUNT 4.1 K/uL (4.8-10.8)
[2018-05-14 08:46] LABS: INR 2.3
[2018-05-14 08:48] LABS: PROTHROMBIN TIME 25.5 SECONDS (9.7-12.2)
[2018-05-14 09:05] LABS: ALB/GLOB RATIO 1.1 (1.0-2.1); ALBUMIN 3.9 g/dL (3.5-5.0); CALCIUM 8.7 mg/dl (8.6-10.4); URIC ACID 12.8 mg/dL (3.5-8.5)
[2018-05-14] MEDS ORDERED: Ergocalciferol 50,000 Intl Units Cap PO SCH (09:45)
[2018-05-14] MEDS ORDERED: Potassium Chloride 20 mEq ER Tab PO ONE (10:00)
[2018-05-14] MEDS ORDERED: Pneumococcal 23-Valent Vaccine IM ONE (10:00)
[2018-05-14] MEDS: (Novolin R) Insulin Human Regular 100 units/ml vial SC SCH ×4 (10:42→21:50)
[2018-05-14] MEDS: Oxycodone/Acetaminophen 5/325 mg Tab PO PRN (10:49)
[2018-05-14] MEDS: Sodium Chloride 0.9% 1,000 ML IV SCH ×3 (11:15→22:01)
--- NOTE | 2018-05-14 12:14 | CP.PCM.PN ---
Subjective - Date & Time of Evaluation Date of Evaluation: 05/14/18 Time of Evaluation: 12:11 - Subjective Subjective: Nephrology Consultation Note: Assessment: Stable Acute Kidney Injury (N17.9) etiology, likely due to pre--renal state: improving with IVF Hypokalemia, Vit D insuff Chronic Kidney Disease (N18.3) Stage 3 with 832 mg proteinuria and 423 mg albuminuria (R80.9) ? due to DM/obesity Obesity, A fib on coumadin Hyperuricemia Hypothyroidism Plan No acute need for renal replacement therapy at this time. BP controlled without meds. Maintain hemodynamics stable. Avoid hypotension. Patient not on ACEI/ARB due to recent KELSEA Monitor Input/Output, daily weights and renal function with basic metabolic panel continue with IVF as NS d/c metformin due to serum Cr elevation. consider alternative meds to control sugar. can add uloric 40 mg/day for hyperuricemia. (deferred allopurniol due to interaction with coumadin but uloric is non-formulary) hold lasix supplement KDUR as needed started weekly Vit D Dose meds/antibiotics for reduced GFR. Avoid fleets enema/magnesium based laxatives. Avoid nephrotoxins/NSAIDs/ iodinated contrast (unless needed emergently) Glycemic control Further work up/management as per primary team Thanks for allowing me to participate in care of your patient. Will follow patient with you. Please call if any Qs. had d/w team and son with pt permission Dr Carlos Larios Office: [phone] Chief Complaint; kidney problem Reason for consult: Acute Kidney Injury HPI: Pt is a 67 M with hx of diabetes Mellitus ? years, Hypothyroidism, A fib on coumadin, CKD stage 3 with baseline cr 1.5-2.0 since 2016, chronic edema on lasix presented with complaints of foot pain and also found to have KELSEA hence renal consulted. pt or son not aware about kidney disease in past Denies OTC/herbal meds or NSAIDs No recent iodinated contrast exposure. No obvious episodes of low BP. pt reports decreased appetite for last 1-2 days and was recently treated with an antibiotics for UTI ROS: Cardiovascular: No chest pain. Pulmonary: No shortness of breath Gastrointestinal: denies abdominal pain No nausea. No vomiting. Genitourinary: No pain while urinating. Denies blood in urine. reports protate issues in past All other negative except as mentioned in HPI Physical Examination: General Appearance: Comfortable, in no acute respiratory distress, co-operative . Vitals reviewed and noted as below Head; Atraumatic, normocephalic ENT: no ulcers no thrush. Tongue is midline. Oropharynx: no rash or ulcers. EYES: Pupils are equal, round and reactive to light accommodation. Eye muscles and extraocular movement intact. Sclera is anicteric. Neck; supple no lymphadenopathy, no thyromegaly or bruit Lungs: Normal respiratory rate/effort. Breath sounds bilateral equal and clear Heart: Normal rate. s1s2 normal. No rub or gallop. Extremities: no edema. No varicose veins. chronic hyperpigmented changes in leg skin noted Neurological: Patient is alert, awake and oriented to person, place and time. No focal deficit. Strength bilateral appropriate and equal Skin: Warm and dry. Normal turgor. No rash. Palpitation: Normal elasticity for age Abdomen: Abdomen is soft. Bowel sounds +. There is no abdominal tenderness, no guarding/rigidity no organomegaly Psych: limited insight and normal affect/mood MSK: no joint tenderness or swelling. Digits and nails normal, no deformity : kidney or bladder not palpable Labs/imaging reviewed. Past medical history, past surgical history, family history, social history, allergy reviewed and noted as below Family hx: no hx of CKD. Rest non-contributory renal imaging b/l medical renal disease with increased echogenicity. no hydronephrosis. uric acid 15.9 UA 2+ protein urine eos neg FeNa 1% Objective - Vital Signs/Intake and Output Vital Signs (last 24 hours): Temp Pulse Resp BP Pulse Ox 97.4 F L 78 20 153/87 H 97 05/14/18 07:00 05/14/18 07:00 05/14/18 07:00 05/14/18 07:00 05/14/18 07:00 Intake and Output: 05/14/18 05/14/18 06:59 18:59 Intake Total 1600 Output Total 200 Balance 1400 - Medications Medications: Current Medications Ergocalciferol (Drisdol 50,000 Intl Units Cap) 1 cap PO Q7D [facility] Last Admin: 05/14/18 10:51 Dose: 1 cap Sodium Chloride (Sodium Chloride 0.9%) 1,000 mls @ 100 mls/hr IV .Q10H [facility] Last Admin: 05/13/18 21:08 Dose: Not Given Insulin Human Regular (Novolin R) 0 unit SC ACHS [facility] PRN Reason: Protocol Last Admin: 05/14/18 10:42 Dose: Not Given Levothyroxine Sodium (Synthroid) 200 mcg PO DAILY@0630 [facility] Last Admin: 05/14/18 06:02 Dose: 200 mcg Oxycodone/Acetaminophen (Percocet 5/325 Mg Tab) 1 tab PO Q6H PRN PRN Reason: Pain, severe (8-10) Stop: 05/15/18 21:16 Last Admin: 05/14/18 10:49 Dose: 1 tab - Labs Labs: 05/14/18 08:36 05/14/18 08:36 PT 25.5 SECONDS (9.7-12.2) H D 05/14/18 08:36 INR 2.3 D 05/14/18 08:36 APTT 41 SECONDS (21-34) H 05/12/18 14:00
--- NOTE | 2018-05-14 14:15 | CP.PCM.PN ---
Subjective - Date & Time of Evaluation Date of Evaluation: 05/14/18 Time of Evaluation: 14:13 - Subjective Subjective: CHIEF COMPLAINTS TODAY : currently patient has no symptoms ROS. HEENT : N. Resp : No cough, wheezing ,pleuritic CP ,or hemoptysis Cardio : No anginal CP, PND, orthopnea, palpitation GI : No abd.pain, n/v ,diarrhea or GI bleeding . PRODUCT ADVISOR : No headache, vertigo, focal deficit. Musculoskel : No joint swelling , right ankle pain Derm : No rash Psych : Normal affect. Ext : No swelling ,calf pain PE. Pt. is alert awake in no distress. V.S As noted in the chart Head ,ear nose,throat and eyes : Normal. Neck : Supple with normal carotids. Lungs: Clear air entry. Heart : S1 & S2 normal with S4. No murmur. Abd : Soft non tender with normal bowel sounds. Neuro : Moves all ext. with no localized deficit. Ext : No edema with intact pulses.Non tender calves . Tenderness in the right ankle Derm : No rashes or decubitus ulcer. LABS/RADIOLOGY:BUN is trending downward to 77 and creatinine 2.5 ASSESSMENT/PLAN : continue IV hydration and follow up the renal function in a.m. Patient's creatinine was 3.5 prior to taking by mouth antibiotics as an outpatient. Objective - Vital Signs/Intake and Output Vital Signs (last 24 hours): Temp Pulse Resp BP Pulse Ox 97.4 F L 69 20 153/87 H 97 05/14/18 07:00 05/14/18 10:00 05/14/18 07:00 05/14/18 07:00 05/14/18 07:00 Intake and Output: 05/14/18 05/14/18 11:59 23:59 Intake Total 800 Output Total 200 Balance 600 - Medications Medications: Current Medications Ergocalciferol (Drisdol 50,000 Intl Units Cap) 1 cap PO Q7D [facility] Last Admin: 05/14/18 10:51 Dose: 1 cap Sodium Chloride (Sodium Chloride 0.9%) 1,000 mls @ 100 mls/hr IV .Q10H [facility] Last Admin: 05/13/18 21:08 Dose: Not Given Insulin Human Regular (Novolin R) 0 unit SC ACHS [facility] PRN Reason: Protocol Last Admin: 05/14/18 12:49 Dose: Not Given Levothyroxine Sodium (Synthroid) 200 mcg PO DAILY@0630 [facility] Last Admin: 05/14/18 06:02 Dose: 200 mcg Oxycodone/Acetaminophen (Percocet 5/325 Mg Tab) 1 tab PO Q6H PRN PRN Reason: Pain, severe (8-10) Stop: 05/15/18 21:16 Last Admin: 05/14/18 10:49 Dose: 1 tab Sitagliptin Phosphate (Januvia) 25 mg PO DAILY [facility] Warfarin Sodium (Coumadin) 5 mg PO 1800 JOSE [facility] Stop: 05/14/18 18:01 - Labs Labs: 05/14/18 08:36 05/14/18 08:36 PT 25.5 SECONDS (9.7-12.2) H D 05/14/18 08:36 INR 2.3 D 05/14/18 08:36 APTT 41 SECONDS (21-34) H 05/12/18 14:00
[2018-05-15] MEDS ORDERED: Sodium Chloride 0.9% 1,000 ML IV SCH (00:52)
[2018-05-15] MEDS: Oxycodone/Acetaminophen 5/325 mg Tab PO PRN (00:57)
[2018-05-15] MEDS: Levothyroxine 200 MCG TAB PO SCH (06:24)
[2018-05-15] MEDS: (Novolin R) Insulin Human Regular 100 units/ml vial SC SCH ×4 (07:27→22:13)
[2018-05-15 07:29] LABS: INR 2.1; PROTHROMBIN TIME 22.5 SECONDS (9.7-12.2)
[2018-05-15 07:30] LABS: BASO % 1.2 % (0.0-2.0); EOS # 0.2 K/uL (0.0-0.7); EOS % 4.3 % (0.0-4.0); HEMOGLOBIN 12.5 g/dL (12.0-18.0); LYMPH % 26.7 % (20.0-40.0); MEAN CORPUSCULAR HEMOGLOBIN 30.9 pg (27.0-31.0); MEAN CORPUSCULAR HGB CONC 34.4 g/dL (33.0-37.0); MEAN PLATELET VOLUME 10.1 fL (7.2-11.7); MONO # 0.4 K/uL (0.0-0.8); MONO % 10.3 % (0.0-10.0); NEUT # 2.1 K/uL (1.8-7.0); NEUT % 57.5 % (50.0-75.0); RBC 4.04 Mil/uL (4.40-5.90); RED CELL DISTRIBUTION WIDTH 12.6 % (11.5-14.5); WHITE BLOOD COUNT 3.7 K/uL (4.8-10.8)
[2018-05-15 07:44] LABS: ALBUMIN 3.6 g/dL (3.5-5.0); CALCIUM 8.6 mg/dl (8.6-10.4)
--- NOTE | 2018-05-15 14:08 | CP.PCM.DIS ---
Provider - Provider Date of Admission: 05/12/18 15:04 Attending physician: Angelina Vick MD Time Spent in preparation of Discharge (in minutes): 35 Hospital Course - Lab Results Lab Results: Micro Results 05/12/18 18:00 Blood-Venous Blood Culture - Preliminary NO GROWTH AFTER 48 HOURS 05/12/18 18:40 Blood-Venous Blood Culture - Preliminary NO GROWTH AFTER 48 HOURS 05/12/18 22:09 Urine,Clean Catch Urine Culture - Final Gram Positive Cocci Most Recent Lab Values WBC 3.7 K/uL (4.8-10.8) L 05/15/18 07:13 RBC 4.04 Mil/uL (4.40-5.90) L 05/15/18 07:13 Hgb 12.5 g/dL (12.0-18.0) 05/15/18 07:13 Hct 36.3 % (35.0-51.0) 05/15/18 07:13 MCV 90.0 fL (80.0-94.0) 05/15/18 07:13 MCH 30.9 pg (27.0-31.0) 05/15/18 07:13 MCHC 34.4 g/dL (33.0-37.0) 05/15/18 07:13 RDW 12.6 % (11.5-14.5) 05/15/18 07:13 Plt Count 180 K/uL (130-400) 05/15/18 07:13 MPV 10.1 fL (7.2-11.7) 05/15/18 07:13 Neut % (Auto) 57.5 % (50.0-75.0) 05/15/18 07:13 Lymph % (Auto) 26.7 % (20.0-40.0) 05/15/18 07:13 [place] % (Auto) 10.3 % (0.0-10.0) H 05/15/18 07:13 Eos % (Auto) 4.3 % (0.0-4.0) H 05/15/18 07:13 Baso % (Auto) 1.2 % (0.0-2.0) 05/15/18 07:13 Neut # (Auto) 2.1 K/uL (1.8-7.0) 05/15/18 07:13 Lymph # (Auto) 1.0 K/uL (1.0-4.3) 05/15/18 07:13 [place] # (Auto) 0.4 K/uL (0.0-0.8) 05/15/18 07:13 Eos # (Auto) 0.2 K/uL (0.0-0.7) 05/15/18 07:13 Baso # (Auto) 0.0 K/uL (0.0-0.2) 05/15/18 07:13 PT 22.5 SECONDS (9.7-12.2) H 05/15/18 07:13 INR 2.1 05/15/18 07:13 APTT 41 SECONDS (21-34) H 05/12/18 14:00 Sodium 145 mmol/L (132-148) 05/15/18 07:13 Potassium 3.9 mmol/L (3.6-5.2) 05/15/18 07:13 Chloride 107 mmol/L (98-107) 05/15/18 07:13 Carbon Dioxide 27 mmol/L (22-30) 05/15/18 07:13 Anion Gap 15 (10-20) 05/15/18 07:13 BUN 58 mg/dL (9-20) H 05/15/18 07:13 Creatinine 2.1 mg/dL (0.8-1.5) H 05/15/18 07:13 Est GFR ( Amer) 38 05/15/18 07:13 Est GFR (Non-Af Amer) 31 05/15/18 07:13 POC Glucose (mg/dL) 149 mg/dL (65-110) H 05/15/18 11:29 Random Glucose 122 mg/dL (75-110) H 05/15/18 07:13 Hemoglobin A1c 7.4 % (4.2-6.5) H 05/14/18 08:36 Uric Acid 12.8 mg/dL (3.5-8.5) H 05/14/18 08:36 Calcium 8.6 mg/dl (8.6-10.4) 05/15/18 07:13 Phosphorus 2.9 mg/dL (2.5-4.5) 05/14/18 08:36 Total Bilirubin 0.5 mg/dL (0.2-1.3) 05/15/18 07:13 AST 30 U/L (17-59) 05/15/18 07:13 ALT 30 U/L (21-72) 05/15/18 07:13 Alkaline Phosphatase 55 U/L (38-126) 05/15/18 07:13 Total Creatine Kinase 104 U/L (55-170) 05/14/18 08:36 Troponin I 0.0280 ng/mL (0.00-0.120) 05/12/18 14:00 NT-Pro-B Natriuret Pep 1250 pg/mL (0-900) H 05/12/18 14:00 Total Protein 7.1 g/dL (6.3-8.3) 05/15/18 07:13 Albumin 3.6 g/dL (3.5-5.0) 05/15/18 07:13 Globulin 3.5 gm/dL (2.2-3.9) 05/15/18 07:13 Albumin/Globulin Ratio 1.0 (1.0-2.1) 05/15/18 07:13 25-OH Vitamin D Total 22.0 NG/ML (30.0-100.0) L 05/14/18 08:36 PTH Intact Whole Molec 310 pg/mL (14-64) H 05/13/18 14:14 Urine Color Yellow (YELLOW) 05/13/18 15:01 Urine Clarity Clear (Clear) 05/13/18 15:01 Urine pH 6.0 (5.0-8.0) 05/13/18 15:01 Ur Specific [place] 1.013 (1.003-1.030) 05/13/18 15:01 Urine Protein 2+ mg/dL (NEGATIVE) H 05/13/18 15:01 Urine Glucose (UA) Normal mg/dL (Normal) 05/13/18 15:01 Urine Ketones Negative mg/dL (NEGATIVE) 05/13/18 15:01 Urine Blood Negative (NEGATIVE) 05/13/18 15:01 Urine Nitrate Negative (NEGATIVE) 05/13/18 15:01 Urine Bilirubin Negative (NEGATIVE) 05/13/18 15:01 Urine Urobilinogen Normal mg/dL (0.2-1.0) 05/13/18 15:01 Ur Leukocyte Esterase Neg Rob/uL (Negative) 05/13/18 15:01 Urine WBC (Auto) 1 /hpf (0-5) 05/13/18 15:01 Urine RBC (Auto) < 1 /hpf (0-3) 05/13/18 15:01 Ur Squamous Epith Cells 1 /hpf (0-5) 05/13/18 15:01 Urine Bacteria Rare (<OCC) 05/12/18 22:09 Urine Eosinophils Negative (NEGATIVE) 05/13/18 18:24 Ur Random Creatinine 102 mg/dL (20-370) 05/13/18 15:01 U Random Total Protein 832 mg/g creat (22-128) H 05/13/18 15:01 Ur Random Sodium 38 mmol/L 05/13/18 15:01 Urine Total Volume 43.0 mg/dL 05/13/18 15:01 Microalb/Creat Ratio 423 (<30) H 05/13/18 15:01 - Hospital Course Hospital Course: Patient is admitted for progressive renal failure and decreasing urine output and right ankle pain. Patient has a history of hypertension and atrial fibrillation history of diastolic heart failure type 2 diabetes recently patients creatinine had gone up to 1.5-1.6. [place] and came back after 1 month and a repeat blood test showed creatinine had gone up to 3.4. Patient was also complaining of urinary symptoms and outpatient urine culture were positive for E. coli more than 100,000. Patient was given Augmentin which was sensitive to E. coli. Patient took some antibiotics and started complaining of more decreasing urine output and swelling and pain on the right ankle patient stated that the pain in the right ankle has been present for the last few months. In the emergency room patients creatinine was 3.5 and BUN was 101 with a potassium of 2.9. Patient is admitted now for further evaluation. patient was admitted on telemetry. Potassium was corrected by by mouth KCl patient was given IV fluid. BUN trended downwards to the time of discharge the BUN was 51 and creatinine 2.5 nephrology consult was obtained workup showed chronic renal kidney disease probably secondary to diabetes hypertension. Eosinophils in the urine were negative to rule out antibiotic associated renal injury. Patient had high blood pressure which was managed with losartan. Metformin was discontinued and Januvia was started. Patient currently stable we will discharge him and followed outpatient. Discharge Plan - Follow Up Plan Condition: GOOD Disposition: HOME/ ROUTINE
[2018-05-15] MEDS: Sodium Chloride 0.9% 1,000 ML IV SCH (17:07)
--- NOTE | 2018-05-15 17:17 | CP.PCM.PN ---
Subjective - Date & Time of Evaluation Date of Evaluation: 05/15/18 Time of Evaluation: 17:16 - Subjective Subjective: Nephrology Consultation Note: Assessment: Stable Acute Kidney Injury (N17.9) etiology, likely due to pre--renal state: improving with IVF Hypokalemia, Vit D insuff Chronic Kidney Disease (N18.3) Stage 3 with 832 mg proteinuria and 423 mg albuminuria (R80.9) ? due to DM/obesity Obesity, A fib on coumadin Hyperuricemia Hypothyroidism Plan No acute need for renal replacement therapy at this time. BP controlled without meds. Maintain hemodynamics stable. Avoid hypotension. Patient not on ACEI/ARB due to recent KELSEA now better. pt with macoralbuminuria hence added losartan Monitor Input/Output, daily weights and renal function with basic metabolic panel d/c IVF avoid metformin due to serum Cr elevation. consider alternative meds to control sugar. can add uloric 40 mg/day for hyperuricemia. (deferred allopurniol due to interaction with coumadin but uloric is non-formulary) hold lasix for now supplement KDUR as needed started weekly Vit D Dose meds/antibiotics for reduced GFR. Avoid fleets enema/magnesium based laxatives. Avoid nephrotoxins/NSAIDs/ iodinated contrast (unless needed emergently) Glycemic control Further work up/management as per primary team Thanks for allowing me to participate in care of your patient. Will follow patient with you. Please call if any Qs. had d/w team and son with pt permission Dr Carlos Larios Office: [phone] Chief Complaint; kidney problem Reason for consult: Acute Kidney Injury HPI: Pt is a 67 M with hx of diabetes Mellitus ? years, Hypothyroidism, A fib on coumadin, CKD stage 3 with baseline cr 1.5-2.0 since 2016, chronic edema on lasix presented with complaints of foot pain and also found to have KELSEA hence renal consulted. pt or son not aware about kidney disease in past Denies OTC/herbal meds or NSAIDs No recent iodinated contrast exposure. No obvious episodes of low BP. pt reports decreased appetite for last 1-2 days and was recently treated with an antibiotics for UTI ROS: Cardiovascular: No chest pain. Pulmonary: No shortness of breath Gastrointestinal: denies abdominal pain No nausea. No vomiting. Genitourinary: No pain while urinating. Denies blood in urine. reports protate issues in past All other negative except as mentioned in HPI Physical Examination: General Appearance: Comfortable, in no acute respiratory distress, co-operative . Vitals reviewed and noted as below Head; Atraumatic, normocephalic ENT: no ulcers no thrush. Tongue is midline. Oropharynx: no rash or ulcers. EYES: Pupils are equal, round and reactive to light accommodation. Eye muscles and extraocular movement intact. Sclera is anicteric. Neck; supple no lymphadenopathy, no thyromegaly or bruit Lungs: Normal respiratory rate/effort. Breath sounds bilateral equal and clear Heart: Normal rate. s1s2 normal. No rub or gallop. Extremities: no edema. No varicose veins. chronic hyperpigmented changes in leg skin noted Neurological: Patient is alert, awake and oriented to person, place and time. No focal deficit. Strength bilateral appropriate and equal Skin: Warm and dry. Normal turgor. No rash. Palpitation: Normal elasticity for age Abdomen: Abdomen is soft. Bowel sounds +. There is no abdominal tenderness, no guarding/rigidity no organomegaly Psych: limited insight and normal affect/mood MSK: no joint tenderness or swelling. Digits and nails normal, no deformity : kidney or bladder not palpable Labs/imaging reviewed. Past medical history, past surgical history, family history, social history, allergy reviewed and noted as below Family hx: no hx of CKD. Rest non-contributory renal imaging b/l medical renal disease with increased echogenicity. no hydronephrosis. uric acid 15.9 UA 2+ protein urine eos neg FeNa 1% Objective - Vital Signs/Intake and Output Vital Signs (last 24 hours): Temp Pulse Resp BP Pulse Ox 97.9 F 86 20 148/67 99 05/15/18 15:59 05/15/18 16:29 05/15/18 15:59 05/15/18 15:59 05/15/18 15:59 Intake and Output: 05/15/18 05/15/18 06:59 18:59 Intake Total 1440 960 Output Total 1000 Balance 440 960 - Medications Medications: Current Medications Ergocalciferol (Drisdol 50,000 Intl Units Cap) 1 cap PO Q7D [facility] Last Admin: 05/14/18 10:51 Dose: 1 cap Sodium Chloride (Sodium Chloride 0.9%) 1,000 mls @ 100 mls/hr IV .Q10H [facility] Last Admin: 05/15/18 17:07 Dose: 100 mls/hr Insulin Human Regular (Novolin R) 0 unit SC ACHS [facility] PRN Reason: Protocol Last Admin: 05/15/18 16:40 Dose: Not Given Levothyroxine Sodium (Synthroid) 200 mcg PO DAILY@0630 [facility] Last Admin: 05/15/18 06:24 Dose: 200 mcg Losartan Potassium (Cozaar) 50 mg PO DAILY [facility] Last Admin: 05/15/18 10:25 Dose: 50 mg Oxycodone/Acetaminophen (Percocet 5/325 Mg Tab) 1 tab PO Q6H PRN PRN Reason: Pain, severe (8-10) Stop: 05/15/18 21:16 Last Admin: 05/15/18 00:57 Dose: 1 tab Sitagliptin Phosphate (Januvia) 25 mg PO DAILY [facility] Last Admin: 05/15/18 10:07 Dose: 25 mg Warfarin Sodium (Coumadin) 7.5 mg PO 1800 [facility] Stop: 05/15/18 18:01 - Labs Labs: 05/15/18 07:13 05/15/18 07:13 PT 22.5 SECONDS (9.7-12.2) H 05/15/18 07:13 INR 2.1 05/15/18 07:13 APTT 41 SECONDS (21-34) H 05/12/18 14:00
[2018-05-16] MEDS: Sodium Chloride 0.9% 1,000 ML IV SCH (03:00)
[2018-05-16] MEDS: Levothyroxine 200 MCG TAB PO SCH (06:50)
[2018-05-16] MEDS: (Novolin R) Insulin Human Regular 100 units/ml vial SC SCH ×2 (07:58→12:12)
[2018-05-16 08:47] VITALS: BP 169/107; TEMP 98.3; O2SAT 99
[2018-05-16 08:48] LABS: BASO % 0.8 % (0.0-2.0); EOS # 0.1 K/uL (0.0-0.7); EOS % 3.2 % (0.0-4.0); HEMOGLOBIN 13.5 g/dL (12.0-18.0); LYMPH # 0.9 K/uL (1.0-4.3); LYMPH % 19.6 % (20.0-40.0); MEAN CELL VOLUME 89.6 fL (80.0-94.0); MEAN CORPUSCULAR HEMOGLOBIN 30.7 pg (27.0-31.0); MEAN CORPUSCULAR HGB CONC 34.2 g/dL (33.0-37.0); MEAN PLATELET VOLUME 10.3 fL (7.2-11.7); MONO # 0.4 K/uL (0.0-0.8); MONO % 7.8 % (0.0-10.0); NEUT # 3.2 K/uL (1.8-7.0); NEUT % 68.6 % (50.0-75.0); NRBC % 0.1 % (0.0-2.0); RBC 4.4 Mil/uL (4.40-5.90); RED CELL DISTRIBUTION WIDTH 12.5 % (11.5-14.5); WHITE BLOOD COUNT 4.6 K/uL (4.8-10.8)
[2018-05-16 08:53] LABS: INR 1.8; PROTHROMBIN TIME 19.5 SECONDS (9.7-12.2)
[2018-05-16 09:02] LABS: ALB/GLOB RATIO 1.1 (1.0-2.1); ALBUMIN 4.1 g/dL (3.5-5.0); CALCIUM 8.8 mg/dl (8.6-10.4)
--- NOTE | 2018-05-16 12:04 | CP.PCM.PN ---
Subjective - Date & Time of Evaluation Date of Evaluation: 05/16/18 Time of Evaluation: 12:04 - Subjective Subjective: PT CLEARED FOR D/C PER DR. LEON. ALL RX AND HOME MEDICATIONS REVIEWED WITH DR. LEON. PT TO GO TO DR. LEON'S OFFICE TOMORROW MORNING FOR CMP AND PT/ INR. D/C INSTRUCTIONS, NEW RX, AND FOLLOW UP DISCUSSED WITH PT AT LENGTH. ALL CONCERNS AND QUESTIONS DISCUSSED. NO FURTHER ORDERS. - SEGUIMIENTO CON EL DR. LEON EN LA OFICINA EN EL PLAZO DE 5-7 [place] --- LLAME A LA OFICINA PARA HACER DESMOND DAMARI. - SEGUIMIENTO CON EL DR. MALCOLM O DR. BRAGA (TXICOS DE [facility]) EN LA OFICINA EN EL PLAZO DE 7-10 [place] --- LLAME A LA OFICINA PARA HACER DESMOND DAMARI. ASEGRESE DE QUE BONILLA TRABAJO DE MAMIE SE HIZO MAANA ([place], 08/14/18) EN LA OFICINA DEL DR. LEON. - BRYSON MEDICAMENTOS EN CASA ESTN CAMBIANDO. STOP TOMANDO: FUROSEMIDA (LASIX), SUPLEMENTO DE POTASIO, METFORMINA (GLUCOPHAGE), VALSARTAN (DIOVAN). -CONTINE TOMANDO BONILLA WARFARIN (COUMADIN) DOSIS CASERA Y LEVOTHYROXINE. -NUEVAS RECETAS QUE BERMEO SIDO ENVIADAS A BONILLA FARMACIA: 1) AMLODIPINA 5 MG (ESTO ES PARA BONILLA PRESIN ARTERIAL) --- TOME 1 TABLETA POR BOCA DESMOND VEZ AL DA. 2) VALSARTAN (DIOVAN) 160 MG (ESTO ES PARA BONILLA PRESIN ARTERIAL) --- TOME 1 TABLETA POR BOCA DESMOND VEZ AL DA. 3) JANUVIA 25 MG (ESTO ES PARA BONILLA AZCAR) --- TOME 1 TABLETA POR LA BOCA DESMOND VEZ AL DA ANTES DEL DESAYUNO. 4) VITAMINA D (DRISDOL) --- ZBIGNIEW 1 CPSULA POR BOCA DESMOND VEZ AL DA. -SI TIENE ALGUNA PREGUNTA O PREOCUPACIN, CONTACTE AL DR. GHAZALA SAWYER. -FOLLOW UP WITH DR. LEON IN THE OFFICE WITHIN 5-7 DAYS---CALL THE OFFICE TO MAKE AN APPOINTMENT. -FOLLOW UP WITH DR. MALCOLM OR DR. BRAGA ([facility]) IN THE OFFICE WITHIN 7- 10 DAYS---CALL THE OFFICE TO MAKE AN APPOINTMENT. -MAKE SURE YOU HAVE YOUR BLOOD WORK DRAWN TOMORROW (05/17/18) IN THE OFFICE OF DR. LEON. -YOUR HOME MEDICATIONS ARE CHANGING. STOP TAKING: FUROSEMIDE (LASIX), POTASSIUM SUPPLEMENT, METFORMIN (GLUCOPHAGE), VALSARTAN (DIOVAN). -CONTINUE TAKING YOUR WARFARIN (COUMADIN) HOME DOSE AND LEVOTHYROXINE. -NEW PRESCRIPTIONS THAT HAVE BEEN SENT TO YOUR PHARMACY: 1) AMLODIPINE 5 MG (THIS IS FOR YOUR BLOOD PRESSURE)---TAKE 1 TABLET BY MOUTH ONCE A DAY. 2) VALSARTAN (DIOVAN) 160 MG (THIS IS FOR YOUR BLOOD PRESSURE)---TAKE 1 TABLET BY MOUTH ONCE A DAY. 3) JANUVIA 25 MG (THIS IS FOR YOUR SUGAR)---TAKE 1 TABLET BY MOUTH ONCE A DAY BEFORE BREAKFAST. 4) VITAMIN D (DRISDOL)---TAKE 1 CAPSULE BY MOUTH ONCE A DAY. -IF YOU HAVE ANY QUESTIONS OR CONCERNS, CONTACT DR. LEON'S OFFICE. Objective - Vital Signs/Intake and Output Vital Signs (last 24 hours): Temp Pulse Resp BP Pulse Ox 98.3 F 85 20 169/107 H 99 05/16/18 07:00 05/16/18 07:00 05/16/18 07:00 05/16/18 07:00 05/16/18 07:00 Intake and Output: 05/16/18 05/16/18 06:59 18:59 Output Total 700 Balance -700 - Medications Medications: Current Medications Ergocalciferol (Drisdol 50,000 Intl Units Cap) 1 cap PO Q7D [facility] Last Admin: 05/14/18 10:51 Dose: 1 cap Sodium Chloride (Sodium Chloride 0.9%) 1,000 mls @ 100 mls/hr IV .Q10H [facility] Last Admin: 05/16/18 03:00 Dose: 100 mls/hr Insulin Human Regular (Novolin R) 0 unit SC ACHS [facility] PRN Reason: Protocol Last Admin: 05/16/18 07:58 Dose: Not Given Levothyroxine Sodium (Synthroid) 200 mcg PO DAILY@0630 [facility] Last Admin: 05/16/18 06:50 Dose: 200 mcg Losartan Potassium (Cozaar) 100 mg PO DAILY [facility] Sitagliptin Phosphate (Januvia) 25 mg PO DAILY [facility] Last Admin: 05/16/18 09:23 Dose: 25 mg - Labs Labs: 05/16/18 08:37 05/16/18 08:37 PT 19.5 SECONDS (9.7-12.2) H 05/16/18 08:37 INR 1.8 05/16/18 08:37 APTT 41 SECONDS (21-34) H 05/12/18 14:00
--- NOTE | 2018-05-16 13:42 | CP.PCM.PN ---
Subjective - Date & Time of Evaluation Date of Evaluation: 05/16/18 Time of Evaluation: 13:41 - Subjective Subjective: Nephrology Consultation Note: Assessment: Stable Acute Kidney Injury (N17.9) etiology, likely due to pre--renal state: improving with IVF Hypokalemia, Vit D insuff Chronic Kidney Disease (N18.3) Stage 3 with 832 mg proteinuria and 423 mg albuminuria (R80.9) ? due to DM/obesity Obesity, A fib on coumadin Hyperuricemia Hypothyroidism Plan No acute need for renal replacement therapy at this time. BP controlled without meds. Maintain hemodynamics stable. Avoid hypotension. Patient not on ACEI/ARB due to recent KELSEA now better. 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 consider alternative meds to control sugar. can add uloric 40 mg/day for hyperuricemia. (deferred allopurniol due to interaction with coumadin but uloric is non-formulary) can resume lasix supplement KDUR as needed started weekly Vit D Dose meds/antibiotics for reduced GFR. Avoid fleets enema/magnesium based laxatives. Avoid nephrotoxins/NSAIDs/ iodinated contrast (unless needed emergently) Glycemic control Further work up/management as per primary team pt stable for d/c from renal perspective when planned, 1 week renal follow up recommended to pt Thanks for allowing me to participate in care of your patient. Will follow patient with you. Please call if any Qs. had d/w team and son with pt permission Dr Carlos Larios Office: [phone] Chief Complaint; kidney problem Reason for consult: Acute Kidney Injury HPI: Pt is a 67 M with hx of diabetes Mellitus ? years, Hypothyroidism, A fib on coumadin, CKD stage 3 with baseline cr 1.5-2.0 since 2016, chronic edema on lasix presented with complaints of foot pain and also found to have KELSEA hence renal consulted. pt or son not aware about kidney disease in past Denies OTC/herbal meds or NSAIDs No recent iodinated contrast exposure. No obvious episodes of low BP. pt reports decreased appetite for last 1-2 days and was recently treated with an antibiotics for UTI ROS: Cardiovascular: No chest pain. Pulmonary: No shortness of breath Gastrointestinal: denies abdominal pain No nausea. No vomiting. Genitourinary: No pain while urinating. Denies blood in urine. reports protate issues in past All other negative except as mentioned in HPI. c/o leg swelling today Physical Examination: General Appearance: Comfortable, in no acute respiratory distress, co-operative . Vitals reviewed and noted as below Head; Atraumatic, normocephalic ENT: no ulcers no thrush. Tongue is midline. Oropharynx: no rash or ulcers. EYES: Pupils are equal, round and reactive to light accommodation. Eye muscles and extraocular movement intact. Sclera is anicteric. Neck; supple no lymphadenopathy, no thyromegaly or bruit Lungs: Normal respiratory rate/effort. Breath sounds bilateral equal and clear Heart: Normal rate. s1s2 normal. No rub or gallop. Extremities: 1+ edema. No varicose veins. chronic hyperpigmented changes in leg skin noted Neurological: Patient is alert, awake and oriented to person, place and time. No focal deficit. Strength bilateral appropriate and equal Skin: Warm and dry. Normal turgor. No rash. Palpitation: Normal elasticity for age Abdomen: Abdomen is soft. Bowel sounds +. There is no abdominal tenderness, no guarding/rigidity no organomegaly Psych: limited insight and normal affect/mood MSK: no joint tenderness or swelling. Digits and nails normal, no deformity : kidney or bladder not palpable Labs/imaging reviewed. Past medical history, past surgical history, family history, social history, allergy reviewed and noted as below Family hx: no hx of CKD. Rest non-contributory renal imaging b/l medical renal disease with increased echogenicity. no hydronephrosis. uric acid 15.9 UA 2+ protein urine eos neg FeNa 1% Objective - Vital Signs/Intake and Output Vital Signs (last 24 hours): Temp Pulse Resp BP Pulse Ox 98.3 F 85 20 169/107 H 99 05/16/18 07:00 05/16/18 07:00 05/16/18 07:00 05/16/18 07:00 05/16/18 07:00 Intake and Output: 05/16/18 05/16/18 06:59 18:59 Output Total 700 Balance -700 - Labs Labs: 05/16/18 08:37 05/16/18 08:37 PT 19.5 SECONDS (9.7-12.2) H 05/16/18 08:37 INR 1.8 05/16/18 08:37 APTT 41 SECONDS (21-34) H 05/12/18 14:00
--- NOTE | 2018-05-16 14:21 | CP.PCM.DIS ---
Provider - Provider Date of Admission: 05/12/18 15:04 Attending physician: Angelina Vick MD Time Spent in preparation of Discharge (in minutes): 35 Hospital Course - Lab Results Lab Results: Micro Results 05/12/18 18:00 Blood-Venous Blood Culture - Preliminary NO GROWTH AFTER 3 DAYS 05/12/18 18:40 Blood-Venous Blood Culture - Preliminary NO GROWTH AFTER 3 DAYS 05/12/18 22:09 Urine,Clean Catch Urine Culture - Final Gram Positive Cocci Most Recent Lab Values WBC 4.6 K/uL (4.8-10.8) L 05/16/18 08:37 RBC 4.40 Mil/uL (4.40-5.90) 05/16/18 08:37 Hgb 13.5 g/dL (12.0-18.0) 05/16/18 08:37 Hct 39.5 % (35.0-51.0) 05/16/18 08:37 MCV 89.6 fL (80.0-94.0) 05/16/18 08:37 MCH 30.7 pg (27.0-31.0) 05/16/18 08:37 MCHC 34.2 g/dL (33.0-37.0) 05/16/18 08:37 RDW 12.5 % (11.5-14.5) 05/16/18 08:37 Plt Count 207 K/uL (130-400) 05/16/18 08:37 MPV 10.3 fL (7.2-11.7) 05/16/18 08:37 Neut % (Auto) 68.6 % (50.0-75.0) 05/16/18 08:37 Lymph % (Auto) 19.6 % (20.0-40.0) L 05/16/18 08:37 [place] % (Auto) 7.8 % (0.0-10.0) 05/16/18 08:37 Eos % (Auto) 3.2 % (0.0-4.0) 05/16/18 08:37 Baso % (Auto) 0.8 % (0.0-2.0) 05/16/18 08:37 Neut # (Auto) 3.2 K/uL (1.8-7.0) 05/16/18 08:37 Lymph # (Auto) 0.9 K/uL (1.0-4.3) L 05/16/18 08:37 [place] # (Auto) 0.4 K/uL (0.0-0.8) 05/16/18 08:37 Eos # (Auto) 0.1 K/uL (0.0-0.7) 05/16/18 08:37 Baso # (Auto) 0.0 K/uL (0.0-0.2) 05/16/18 08:37 PT 19.5 SECONDS (9.7-12.2) H 05/16/18 08:37 INR 1.8 05/16/18 08:37 APTT 41 SECONDS (21-34) H 05/12/18 14:00 Sodium 147 mmol/L (132-148) 05/16/18 08:37 Potassium 3.9 mmol/L (3.6-5.2) 05/16/18 08:37 Chloride 106 mmol/L (98-107) 05/16/18 08:37 Carbon Dioxide 26 mmol/L (22-30) 05/16/18 08:37 Anion Gap 19 (10-20) 05/16/18 08:37 BUN 42 mg/dL (9-20) H 05/16/18 08:37 Creatinine 2.0 mg/dL (0.8-1.5) H 05/16/18 08:37 Est GFR ( Amer) 40 05/16/18 08:37 Est GFR (Non-Af Amer) 33 05/16/18 08:37 POC Glucose (mg/dL) 145 mg/dL (65-110) H 05/16/18 11:12 Random Glucose 127 mg/dL (75-110) H 05/16/18 08:37 Hemoglobin A1c 7.4 % (4.2-6.5) H 05/14/18 08:36 Uric Acid 12.8 mg/dL (3.5-8.5) H 05/14/18 08:36 Calcium 8.8 mg/dl (8.6-10.4) 05/16/18 08:37 Phosphorus 2.9 mg/dL (2.5-4.5) 05/14/18 08:36 Total Bilirubin 0.6 mg/dL (0.2-1.3) 05/16/18 08:37 AST 30 U/L (17-59) 05/16/18 08:37 ALT 28 U/L (21-72) 05/16/18 08:37 Alkaline Phosphatase 62 U/L (38-126) 05/16/18 08:37 Total Creatine Kinase 104 U/L (55-170) 05/14/18 08:36 Troponin I 0.0280 ng/mL (0.00-0.120) 05/12/18 14:00 NT-Pro-B Natriuret Pep 1250 pg/mL (0-900) H 05/12/18 14:00 Total Protein 8.0 g/dL (6.3-8.3) 05/16/18 08:37 Albumin 4.1 g/dL (3.5-5.0) 05/16/18 08:37 Globulin 3.8 gm/dL (2.2-3.9) 05/16/18 08:37 Albumin/Globulin Ratio 1.1 (1.0-2.1) 05/16/18 08:37 25-OH Vitamin D Total 22.0 NG/ML (30.0-100.0) L 05/14/18 08:36 PTH Intact Whole Molec 310 pg/mL (14-64) H 05/13/18 14:14 Urine Color Yellow (YELLOW) 05/13/18 15:01 Urine Clarity Clear (Clear) 05/13/18 15:01 Urine pH 6.0 (5.0-8.0) 05/13/18 15:01 Ur Specific [place] 1.013 (1.003-1.030) 05/13/18 15:01 Urine Protein 2+ mg/dL (NEGATIVE) H 05/13/18 15:01 Urine Glucose (UA) Normal mg/dL (Normal) 05/13/18 15:01 Urine Ketones Negative mg/dL (NEGATIVE) 05/13/18 15:01 Urine Blood Negative (NEGATIVE) 05/13/18 15:01 Urine Nitrate Negative (NEGATIVE) 05/13/18 15:01 Urine Bilirubin Negative (NEGATIVE) 05/13/18 15:01 Urine Urobilinogen Normal mg/dL (0.2-1.0) 05/13/18 15:01 Ur Leukocyte Esterase Neg Rob/uL (Negative) 08/07/18 15:01 Urine WBC (Auto) 1 /hpf (0-5) 05/13/18 15:01 Urine RBC (Auto) < 1 /hpf (0-3) 05/13/18 15:01 Ur Squamous Epith Cells 1 /hpf (0-5) 05/13/18 15:01 Urine Bacteria Rare (<OCC) 05/12/18 22:09 Urine Eosinophils Negative (NEGATIVE) 05/13/18 18:24 Ur Random Creatinine 102 mg/dL (20-370) 05/13/18 15:01 U Random Total Protein 832 mg/g creat (22-128) H 05/13/18 15:01 Ur Random Sodium 38 mmol/L 05/13/18 15:01 Urine Total Volume 43.0 mg/dL 05/13/18 15:01 Microalb/Creat Ratio 423 (<30) H 05/13/18 15:01 - Hospital Course Hospital Course: Patient is admitted for progressive renal failure and decreasing urine output and right ankle pain. Patient has a history of hypertension and atrial fibrillation history of diastolic heart failure type 2 diabetes recently patients creatinine had gone up to 1.5-1.6. [place] went [place] and came back after 1 month and a repeat blood test showed creatinine had gone up to 3.4. Patient was also complaining of urinary symptoms and outpatient urine culture were positive for E. coli more than 100,000. Patient was given Augmentin which was sensitive to E. coli. Patient took some antibiotics and started complaining of more decreasing urine output and swelling and pain on the right ankle patient stated that the pain in the right ankle has been present for the last few months. In the emergency room patients creatinine was 3.5 and BUN was 101 with a potassium of 2.9. Patient is admitted now for further evaluation. pATIENT IMPROVED ON iv HYDRATION. Prior to discharge the BUN was 42 and creatinine 2.5 with normal potassium. Ultrasound of the kidney shows chronic kidney disease. Urine urine office were negative. Uric acid was elevated. Metformin was discontinued and Januvia was given. Patient's blood pressure was controlled with losartan. Renal consult was obtained currently patient does not require any renal replacement therapy. Patient is discharged we will continue Januvia amlodipine losartan urolic, and avoid all nephrotoxic drugs and chemicals. Discharge Plan - Discharge Medications Prescriptions: Ergocalciferol [Drisdol 50,000 Intl Units Cap] 1 cap PO Q7D #4 cap SITagliptin [Januvia] 25 mg PO DAILY #30 tab amLODIPine [Norvasc] 5 mg PO DAILY #30 tab Valsartan 160 mg PO DAILY #30 tablet - Follow Up Plan Condition: GOOD Disposition: HOME/ ROUTINE Instructions: Sitagliptin, Heart Healthy Diet, Diabetes Exchange Diet, Lifestyle Changes to Manage Gout, Gout (DC), Carbohydrate Counting Diet, Diabetes Diet , Amlodipine, Ergocalciferol, Valsartan, Warfarin, Acute Kidney Injury (DC), Hypokalemia (DC) Additional Instructions: - SEGUIMIENTO CON EL DR. VICK EN LA OFICINA EN EL PLAZO DE 5-7 [place] --- LLAME A LA OFICINA PARA HACER DESMOND DAMARI. - SEGUIMIENTO CON EL DR. MALCOLM O DR. BRAGA ([facility]) EN LA OFICINA EN EL PLAZO DE 7-10 [place] --- LLAME A LA OFICINA PARA HACER DESMOND DAMARI. ASEGRESE DE QUE BONILLA TRABAJO DE MAMIE SE HIZO FÉLIX ([place], 08/14/18) EN LA OFICINA DEL DR. VICK. - BRYSON MEDICAMENTOS EN CASA ESTN CAMBIANDO. STOP TOMANDO: FUROSEMIDA (LASIX), SUPLEMENTO DE POTASIO, METFORMINA (GLUCOPHAGE), VALSARTAN (DIOVAN). -CONTINE TOMANDO BONILLA WARFARIN (COUMADIN) DOSIS CASERA Y LEVOTHYROXINE. -NUEVAS RECETAS QUE BERMEO SIDO ENVIADAS A BONILLA FARMACIA: 1) AMLODIPINA 5 MG (ESTO ES PARA BONILLA PRESIN ARTERIAL) --- TOME 1 TABLETA POR BOCA DESMOND VEZ AL DA. 2) VALSARTAN (DIOVAN) 160 MG (ESTO ES PARA BONILLA PRESIN ARTERIAL) --- TOME 1 TABLETA POR BOCA DESMOND VEZ AL DA. 3) JANUVIA 25 MG (ESTO ES PARA BONILLA AZCAR) --- TOME 1 TABLETA POR LA BOCA DESMOND VEZ AL DA ANTES DEL DESAYUNO. 4) VITAMINA D (DRISDOL) --- ZBIGNIEW 1 CPSULA POR BOCA DESMOND VEZ AL DA. -SI TIENE ALGUNA PREGUNTA O PREOCUPACIN, CONTACTE AL DR. GHAZALA SAWYER. -FOLLOW UP WITH DR. VICK IN THE OFFICE WITHIN 5-7 DAYS---CALL THE OFFICE TO MAKE AN APPOINTMENT. -FOLLOW UP WITH DR. MALCOLM OR DR. BRAGA ([facility]) IN THE OFFICE WITHIN 7- 10 DAYS---CALL THE OFFICE TO MAKE AN APPOINTMENT. -MAKE SURE YOU HAVE YOUR BLOOD WORK DRAWN TOMORROW (05/17/18) IN THE OFFICE OF DR. VICK. -YOUR HOME MEDICATIONS ARE CHANGING. STOP TAKING: FUROSEMIDE (LASIX), POTASSIUM SUPPLEMENT, METFORMIN (GLUCOPHAGE), VALSARTAN (DIOVAN). -CONTINUE TAKING YOUR WARFARIN (COUMADIN) HOME DOSE AND LEVOTHYROXINE. -NEW PRESCRIPTIONS THAT HAVE BEEN SENT TO YOUR PHARMACY: 1) AMLODIPINE 5 MG (THIS IS FOR YOUR BLOOD PRESSURE)---TAKE 1 TABLET BY MOUTH ONCE A DAY. 2) VALSARTAN (DIOVAN) 160 MG (THIS IS FOR YOUR BLOOD PRESSURE)---TAKE 1 TABLET BY MOUTH ONCE A DAY. 3) JANUVIA 25 MG (THIS IS FOR YOUR SUGAR)---TAKE 1 TABLET BY MOUTH ONCE A DAY BEFORE BREAKFAST. 4) VITAMIN D (DRISDOL)---TAKE 1 CAPSULE BY MOUTH ONCE A DAY. -IF YOU HAVE ANY QUESTIONS OR CONCERNS, CONTACT DR. VICK'S OFFICE. Referrals: Carlos Malcolm MD [Staff Provider] - Angelina Vick MD [Staff Provider] -
[2018-05-16 14:31] VITALS: PULSE 89
--- NOTE | 2018-05-16 19:25 | CARD ---
APPROVED REPORT Date of service: 05/12/2018 EKG Measurement Heart [id number] <Conclusion> Atrial fibrillation with rapid ventricular response Abnormal ECG
== END 2018-05-16 13:37 | disposition home or self-care (01) | DRG 683 ==
LOC: C.ER 13:06 → C.9E 15:04 → C.6T 15:49
PROVIDERS: ADMIT Internal Medicine Cardiovascular Disease; ATTEND Internal Medicine Cardiovascular Disease
DX: N17.9 Acute kidney failure, unspecified (principal); I13.0 Hypertensive heart and chronic kidney disease with heart failure and stage 1 through stage 4 chronic kidney disease, or unspecified chronic kidney disease; I50.30 Unspecified diastolic (congestive) heart failure; E03.9 Hypothyroidism, unspecified; E66.9 Obesity, unspecified; Z68.36 Body mass index [BMI] 36.0-36.9, adult; E78.00 Pure hypercholesterolemia, unspecified; E87.6 Hypokalemia; I48.91 Unspecified atrial fibrillation; M10.9 Gout, unspecified; N18.3 Chronic kidney disease, stage 3 (moderate); Z87.891 Personal history of nicotine dependence; T36.95XA Adverse effect of unspecified systemic antibiotic, initial encounter; R80.9 Proteinuria, unspecified; Z79.01 Long term (current) use of anticoagulants; M25.571 Pain in right ankle and joints of right foot; E11.22 Type 2 diabetes mellitus with diabetic chronic kidney disease; Z79.4 Long term (current) use of insulin

== ENCOUNTER 2018-10-21 10:22 | Outpatient (CLI) | payer MEDICARE | END 2018-10-21 10:23 | disposition home or self-care (01) | LOC: C.USIC 10:23 | DX: N28.89 Other specified disorders of kidney and ureter (principal) ==